=== PATIENT | female | born 1945 | race Caucasian/White ===

== ENCOUNTER 2017-02-24 10:58 | Emergency (ER) | payer MEDICARE, OTHER ==
--- NOTE | 2017-02-24 11:40 | ED ---
General Adult HPI - General Chief complaint: Fall Stated complaint: fall Time Seen by Provider: 02/24/17 11:26 Source: patient, RN notes reviewed Mode of arrival: ambulatory Limitations: no limitations - History of Present Illness Initial comments: Patient 72-year-old female who presents emergency room today with chief complaint of injury to the right knee right shoulder times one day. Does admit that yesterday she was walking back to her house when; and she went to turn around lost her balance falling down onto the right knee and hitting her right shoulder. Denies any head injury or loss conscious. Does admit that she's had increased pain to the right knee is worse with certain movements. She admits to some mild discomfort to the right shoulder and also admits that it's worse with movements. Patient denies any other complaints or associated symptoms. Patient denies any recent fever, chills, shortness of breath, chest pain, back pain, abdominal pain, nausea or vomiting, numbness or tingling, dysuria or hematuria, constipation or diarrhea, headaches or visual changes, or any other complaints. - Related Data Previous Rx's Medication Instructions Recorded Acetaminophen with Codeine 1 each PO Q4H PRN #20 tab 01/14/15 [Tylenol w/codeine #3] Cyclobenzaprine [Flexeril] 10 mg PO TID #20 tab 01/14/15 methylPREDNISolone [Medrol] 4 mg PO DIRECTED #1 tab.ds.pk 01/14/15 traMADol HCl [Ultram] 50 mg PO Q6H PRN #20 tab 02/24/17 Allergies Allergy/AdvReac Type Severity Reaction Status Date / Time hydroxychloroquine sulfate AdvReac Itching Verified 01/14/15 19:03 [From Plaquenil] Review of Systems ROS Statement: Those systems with pertinent positive or pertinent negative responses have been documented in the HPI. ROS Other: All systems not noted in ROS Statement are negative. Past Medical History Past Medical History: COPD, Osteoarthritis (OA), Rheumatoid Arthritis (RA) Additional Past Medical History / Comment(s): carpel tunnel History of Any Multi-Drug Resistant Organisms: None Reported Past Surgical History: Hysterectomy, Tonsillectomy Additional Past Surgical History / Comment(s): sjogens, bilateral carpal tunnel Past Psychological History: Anxiety Smoking Status: Current every day smoker Past Alcohol Use History: None Reported General Exam - General Exam Comments Initial Comments: General: The patient is awake and alert, in no distress, and does not appear acutely ill. Neck: The neck is supple, there is no tenderness or JVD. Cardiovascular: There is a regular rate and rhythm. No murmur, rub or gallop is appreciated. Respiratory: Lungs are clear to auscultation, respirations are non-labored, breath sounds are equal. No wheezes, stridor, rales, or rhonchi. Musculoskeletal: Patient does have some mild swelling to the right knee. Shows good range of motion of right knee, right shoulder. Mild tenderness to the anterior lateral aspect of the right knee on palpation. Patient does have some mild tenderness to both posterior and anterior aspects of the right shoulder. Sensations are intact with pulses equal bilaterally 2+ strength 5/5. Neurological: A&O x 3. CN II-XII intact, There are no obvious motor or sensory deficits. Coordination appears grossly intact. Speech is normal. Skin: Skin is warm and dry and no rashes or lesions are noted. Psychiatric: Normal mood and affect. Limitations: no limitations Course Vital Signs 02/24/17 11:07 Temperature 98.5 F Pulse Rate 97 Respiratory 18 Rate Blood Pressure 115/79 O2 Sat by Pulse 99 Oximetry Medical Decision Making - Medical Decision Making Patient reexamined at this time shows no signs of distress. X-rays reviewed are negative for any acute fracture dislocation. Results were discussed with the patient. Patient is advised follow-up with orthopedics. States she plans to follow Dr. Negrete. Patient states that she tried ibuprofen with little relief the symptoms at home. Patient requesting prescription for tramadol here in emergency room. Advised patient given a short prescription she'll need to follow-up with orthopedics or family doctor. She states understanding and is in agreement. Disposition Clinical Impression: Knee contusion, Sprain shoulder/arm Disposition: HOME SELF-CARE Condition: Good Instructions: Contusion in Adults (ED) Additional Instructions: Please use medication as discussed. Please follow-up with family doctor in the next 2 days of symptoms have not improved. Please return to emergency room if the symptoms increase or worsen or for any other concerns. Prescriptions: traMADol HCl [Ultram] 50 mg PO Q6H PRN #20 tab PRN Reason: Pain Referrals: Mercedes Squires DO [Primary Care Provider] - 1-2 days Time of Disposition: 13:06
--- NOTE | 2017-02-24 12:52 | XR ---
EXAMINATION TYPE: XR shoulder complete RT DATE OF EXAM: 02/24/2017 12:26 PM COMPARISON: NONE HISTORY: Pain TECHNIQUE: 3 views FINDINGS: I see no fracture nor dislocation. Glenohumeral joint is intact. IMPRESSION: Negative right shoulder exam.
--- NOTE | 2017-02-24 12:54 | XR ---
EXAMINATION TYPE: XR knee complete RT DATE OF EXAM: 02/24/2017 12:26 PM COMPARISON: NONE HISTORY: Pain TECHNIQUE: 3 views FINDINGS: There is narrowing of the medial joint space with spurring of the medial femoral and tibial condyles. There is mild spurring on the patella. I see no fracture nor dislocation. IMPRESSION: Moderate osteoarthritis in the medial joint space. No fracture. Mild anterior soft tissue swelling.
[2017-02-24 13:23] VITALS: BP 143/86; PULSE 86; RESP 16; TEMP 98.3
== END 2017-02-24 13:30 | disposition home or self-care (01) ==
LOC: EC 10:58
DX: S43.401A Unspecified sprain of right shoulder joint, initial encounter (principal); S80.01XA Contusion of right knee, initial encounter; F17.200 Nicotine dependence, unspecified, uncomplicated; Z88.8 Allergy status to other drugs, medicaments and biological substances; W01.10XA Fall on same level from slipping, tripping and stumbling with subsequent striking against unspecified object, initial encounter; Y93.01 Activity, walking, marching and hiking; Y92.89 Other specified places as the place of occurrence of the external cause
CPT/HCPCS: 99283

== ENCOUNTER → 2017-03-27 | Outpatient (CLI) | payer MEDICARE, OTHER ==
[2017-03-27 16:23] LABS: Blood Urea Nitrogen 22 mg/dL (7-17); Non-African American GFR(MDRD) >60 (>60 ml/min/1.73 sqM)
--- NOTE | 2017-03-28 10:04 | CT ---
EXAMINATION TYPE: CT angio neck DATE OF EXAM: 03/27/2017 HISTORY: Left sided carotid stenosis. COMPARISON: NONE CT DLP: 310.00 mGycm. Automated Exposure Control for Dose Reduction was Utilized. TECHNIQUE: CTA scan of the neck is performed with IV Contrast, patient injected with 100 mL of Omnip aque 350, axial images are obtained, coronal and sagittal reformatted images are reviewed. Three-D re constructed images are created on an independent workstation and reviewed. FINDINGS: Carotid/Vascular Structures: There is a three-vessel arch. The common carotid arteries appear normal. Some beam hardening artifact limits evaluation of the origins of the common carotid vessels. Some pl aquing may be present at the origins causing stenosis. Atheromatous plaquing is at the right internal carotid artery origin. By transverse dimension measure ment disc causing a 45% narrowing. Consider correlation with ultrasound carotid vessels. No compariso n vascular studies are present at this location. Atheromatous plaquing is present at the origin of the left internal carotid artery. This appears circ umferential is causing a 50-69% narrowing by direct measurement. This appears to be at the higher end of the range on visual inspection. Other: Internal carotid arteries bifurcate into A1 and M1 segments. Cerebral artery branches and A2 s egments as visualized appear unremarkable. Vertebrobasilar system is patent. Posterior cerebral vascu lature within the [id number] is normal. Vertebral arteries appear codominant. Lung apices within t he [id number] are clear. IMPRESSION: 1. Moderate stenosis between 50 and 69% left internal carotid artery origin with circumferential calc ified plaque at the internal carotid artery. 2. Mild narrowing right internal carotid artery origin approaching 50%.
== END | disposition home or self-care (01) ==
LOC: RADCTMAIN 15:53
PROVIDERS: ATTEND Family Medicine
DX: I65.23 Occlusion and stenosis of bilateral carotid arteries (principal)
CPT/HCPCS: 82565; 84520; 70498; 36415; Q9967

== ENCOUNTER → 2018-02-25 | Outpatient (CLI) | payer MEDICARE, OTHER ==
--- NOTE | 2018-02-25 11:01 | CTL ---
EXAMINATION TYPE: CT Low Dose Lung DATE OF EXAM ORDERED: 02/25/2018 COMPARISON: None HISTORY: . Low Dose CT Lung Screening CT DLP: [address] CTDI: 1.8 mGy IV CONTRAST USED: None. SCREENING VISIT: First visit COMPARISON: None. TECHNIQUE: Low dose computed tomography scan was performed through the chest at 1 millimeter thick se ctions and reconstructed images in the coronal plane at [address] DIAGNOSTIC QUALITY: Satisfactory FINDINGS: LUNG NODULES: Not presentLeft lung: no nodules identified.Right lung: no nodules identified. LUNGS: COPD: Severity: Mild upper lobe emphysematous changes seen. Fibrosis: Severity:None Lymph nodes: None Other findings: Linear scar postinflammatory change in the region of the lingula. RIGHT PLEURAL SPACE: Effusion: None Calcification: None Thickening: None Pneumothorax: None LEFT PLEURAL SPACE: Effusion: None Calcification: None Thickening: None Pneumothorax: None HEART: Heart Size: Mildly enlarged Coronary calcification: Mild Pericardial effusion: None OTHER FINDINGS: Upper abdomen: No significant abnormality Bony thorax: Degenerative changes Supraclavicular region: No significant abnormalityOther: No significant abnormalityI IMPRESSION: Benign FOLLOW UP CT CHEST RECOMMENDATION: Follow-up screening in one year CT LUNG RAD: Negative category 1 LUNG RAD CATEGORY 1
== END | disposition home or self-care (01) ==
LOC: RADCTMAIN 10:06
PROVIDERS: ATTEND Internal Medicine Sleep Medicine
DX: Z12.2 Encounter for screening for malignant neoplasm of respiratory organs (principal); Z87.891 Personal history of nicotine dependence

== ENCOUNTER 2019-01-26 10:00 | Day surgery (SDC) | payer MEDICARE, OTHER ==
[2019-01-21 10:00] VITALS: BMI 22.8
[~2019-01-26 10:00] MED LIST: LACTATED RINGERS 1,000 ML IV SCH; LIDOCAINE 1% 20 ML VIAL (10MG/ML) FOR IV START INTRADERMA PRN
[2019-01-26 10:23] VITALS: TEMP 98.3
[2019-01-26] MEDS ORDERED: PROPOFOL 10 MG/ML 20 ML VIAL IV ONE (11:29)
[2019-01-26] MEDS ORDERED: LIDOCAINE 1% INJ 10MG/ML (20 ML MDV) ONE (11:29)
--- NOTE | 2019-01-26 11:32 | P.GSHP ---
History of Present Illness H&P Date: 01/26/19 Chief Complaint: GERD This a 74-year-old female who presents today for EGD. Patient points of GERD and nausea. Past Medical History Past Medical History: COPD, Fibromyalgia, GERD/Reflux, Hyperlipidemia, Hypertension, Osteoarthritis (OA), Pneumonia, Rheumatoid Arthritis (RA), Thyroid Disorder Additional Past Medical History / Comment(s): Shrogren's. Hx pneumonia. History of Any Multi-Drug Resistant Organisms: None Reported Past Surgical History: Hysterectomy, Tonsillectomy Additional Past Surgical History / Comment(s): Bilateral carpal tunnel release. Past Anesthesia/Blood Transfusion Reactions: No Reported Reaction Past Psychological History: Anxiety, Depression Smoking Status: Current every day smoker Past Alcohol Use History: Rare Additional Past Alcohol Use History / Comment(s): Working on quitting, has been smoking since 16 yrs old. Currently down to 6 cigarettes per day. Past Drug Use History: Marijuana Additional Drug Use History / Comment(s): Occasional marijuana use. Aware no use 24 hrs prior to procedure. - Past Family History Mother Family Medical History: No Reported History Medications and Allergies Home Medications Medication Instructions Recorded Confirmed Type ARIPiprazole 2 mg PO HS 01/21/19 01/21/19 History Albuterol Inhaler [Ventolin Hfa 1 - 2 puff INHALATION RT-Q6H PRN 01/21/19 01/26/19 History Inhaler] Atorvastatin [Lipitor] 40 mg PO HS 01/21/19 01/21/19 History Budesonide [Pulmicort] 0.5 mg INHALATION BID PRN 01/21/19 01/26/19 History Cholecalciferol [Vitamin D3] 4,000 unit PO DAILY 01/21/19 01/21/19 History DULoxetine HCL [Cymbalta] 60 mg PO HS 01/21/19 01/21/19 History Fluticasone Nasal [place] [Flonase 1 spray EA NOSTRIL DAILY 01/21/19 01/21/19 History Nasal [place]] Folic Acid 1 mg PO DAILY 01/21/19 01/21/19 History Irbesartan/Hydrochlorothiazide 1 each PO HS 01/21/19 01/21/19 History [Irbesartan-Hctz 150-12.5 mg Tb] Levothyroxine Sodium 125 mcg PO QAM 01/21/19 01/21/19 History Methotrexate [Xatmep Oral Soln] 25 mg PO BOUDREAUX 01/21/19 01/21/19 History Mirtazapine [Remeron] 30 mg PO HS 01/21/19 01/21/19 History [place] 250 mg PO BID 01/21/19 01/21/19 History Raloxifene [Evista] 60 mg PO QAM 01/21/19 01/21/19 History traZODone HCL 150 mg PO HS 01/21/19 01/21/19 History Allergies Allergy/AdvReac Type Severity Reaction Status Date / Time hydroxychloroquine sulfate AdvReac Itching Verified 01/26/19 10:18 [From Plaquenil] Surgical - Exam Vital Signs Temp Pulse Resp BP Pulse Ox 98.3 F 99 17 155/76 98 01/26/19 10:22 01/26/19 10:22 01/26/19 10:22 01/26/19 10:22 01/26/19 10:22 - General well developed, well nourished, no distress - Eyes PERRL - ENT normal pinna - Neck no masses - Respiratory normal expansion - Cardiovascular Rhythm: regular - Abdomen Abdomen: soft, non tender Assessment and Plan Assessment: GERD, nausea. We'll perform EGD.
--- NOTE | 2019-01-26 11:40 | P.OP ---
Date of Procedure: 01/26/19 Preoperative Diagnosis: GERD Nausea Postoperative Diagnosis: Antral gastritis Hiatal hernia Esophagitis Procedure(s) Performed: EGD Anesthesia: MAC Surgeon: Sukhi Vazquez Pathology: other (Antrum, esophagus) Condition: stable Disposition: PACU Description of Procedure: Patient's placed on the endoscopy table lateral position she received IV sedation. The gastroscope placed oropharynx passed in the esophagus and into the stomach. Scope was then placed through the pylorus. The first and second p ortion of the duodenum appeared normal. Scope was then brought back the antrum and this appeared mildly inflamed. A biopsy was performed. The scope was then retroflexed and the remainder of the stomach appeared normal. There was a moderate size hiatal hernia. The GE junction was at 38 cm. The distal esophagus appeared moderately inflamed. There was evidence of a inflammatory went. A biopsies performed. The proximal esophagus appeared normal. The scope was then withdrawn for patient.
[2019-01-26 11:48] VITALS: RESP 16
[2019-01-26 12:02] VITALS: BP 116/76; PULSE 82
== END 2019-01-26 12:27 | disposition home or self-care (01) ==
LOC: ORWHC2ENDO 10:00
PROVIDERS: ATTEND Surgery
DX: K21.0 Gastro-esophageal reflux disease with esophagitis (principal); K29.50 Unspecified chronic gastritis without bleeding; K44.9 Diaphragmatic hernia without obstruction or gangrene; J44.9 Chronic obstructive pulmonary disease, unspecified; I10 Essential (primary) hypertension; E78.5 Hyperlipidemia, unspecified; M06.9 Rheumatoid arthritis, unspecified; M79.7 Fibromyalgia; M19.90 Unspecified osteoarthritis, unspecified site; E07.9 Disorder of thyroid, unspecified; F17.210 Nicotine dependence, cigarettes, uncomplicated; Z79.890 Hormone replacement therapy; Z79.51 Long term (current) use of inhaled steroids; Z79.899 Other long term (current) drug therapy
CPT/HCPCS: 88305; 43239; J2001; J2704

== ENCOUNTER → 2019-01-27 | Outpatient (CLI) | payer MEDICARE, OTHER ==
--- NOTE | 2019-01-27 11:51 | NM ---
EXAMINATION TYPE: NM hepatobiliary w CCK DATE OF EXAM: 01/27/2019 COMPARISON: NONE HISTORY: Nausea TECHNIQUE: After the intravenous administration of 4.92 mCi Tc 99m Mebrofenin hepatobiliary scintigra phy is performed. Immediate images post injection. FINDINGS: There is satisfactory initial accumulation of tracer by the liver. The gallbladder is visualized wit hin 12 minutes. The small bowel activity is noted within 16 minutes. At one hour CCK was administer ed, patient was injected with 1.14 mcg of Kinevac, and gallbladder ejection fraction is calculated at 92%. IMPRESSION: Increased gallbladder ejection fraction may reflect hypercontractile state.
== END | disposition home or self-care (01) ==
LOC: RADNMMAIN 06:50
PROVIDERS: ATTEND Surgery
DX: R11.0 Nausea (principal)
CPT/HCPCS: 78227; A9537; J2805

== ENCOUNTER 2019-02-16 08:01 | Day surgery (SDC) | payer MEDICARE, OTHER ==
[2019-02-11 13:32] VITALS: BMI 20.5
[~2019-02-16 08:01] MED LIST changes: +DEXAMETHASONE SOD PHOSPHATE 10 MG/ML 1 ML VIAL IV ONE; +HEPARIN SODIUM,PORCINE 5,000 UNIT/ML 1 ML VIAL SQ ONE; +HYDROmorphone 0.5 MG/0.5 ML SYRINGE IVP PRN; +MIDAZOLAM 2 MG/2 ML VIAL IV PRN; +ONDANSETRON 4 MG/2 ML VIAL IVP ONE; +SCOPOLAMINE 1.5MG/72HR PATCH TRANSDERM ONE; +ceFAZolin IN SWFI 2 GM/20 ML SYRINGE IVP ONE
--- NOTE | 2019-02-16 08:45 | P.GSHP ---
History of Present Illness H&P Date: 02/16/19 Chief Complaint: Right upper quadrant pain This a 74-year-old female who presents today for laparoscopic cholecystectomy. Patient had complaints of right upper quadrant pain. Patient had a HIDA scan performed which showed a hyperkinetic gallbladder with an elevated ejection fraction Past Medical History Past Medical History: COPD, Fibromyalgia, GERD/Reflux, Hyperlipidemia, Hypertension, Osteoarthritis (OA), Pneumonia, Rheumatoid Arthritis (RA), Thyroid Disorder Additional Past Medical History / Comment(s): frequent nausea,hx Shrogren's History of Any Multi-Drug Resistant Organisms: None Reported Past Surgical History: Hysterectomy, Tonsillectomy Additional Past Surgical History / Comment(s): Bilateral carpal tunnel release. Past Anesthesia/Blood Transfusion Reactions: No Reported Reaction Smoking Status: Current every day smoker - Past Family History Mother Family Medical History: No Reported History Medications and Allergies Home Medications Medication Instructions Recorded Confirmed Type ARIPiprazole 2 mg PO HS 01/21/19 02/16/19 History Albuterol Inhaler [Ventolin Hfa 1 - 2 puff INHALATION RT-Q6H PRN 01/21/19 02/16/19 History Inhaler] Atorvastatin [Lipitor] 40 mg PO HS 01/21/19 02/16/19 History Budesonide [Pulmicort] 0.5 mg INHALATION BID PRN 01/21/19 02/16/19 History Cholecalciferol [Vitamin D3] 4,000 unit PO DAILY 01/21/19 02/16/19 History DULoxetine HCL [Cymbalta] 60 mg PO HS 01/21/19 02/16/19 History Fluticasone Nasal [place] [Flonase 1 spray EA NOSTRIL DAILY 01/21/19 02/16/19 History Nasal [place]] Folic Acid 1 mg PO DAILY 01/21/19 02/16/19 History Irbesartan/Hydrochlorothiazide 1 each PO HS 01/21/19 02/16/19 History [Irbesartan-Hctz 150-12.5 mg Tb] Levothyroxine Sodium 125 mcg PO QAM 01/21/19 02/16/19 History Mirtazapine [Remeron] 30 mg PO HS 01/21/19 02/16/19 History [place] 250 mg PO BID PRN 01/21/19 02/16/19 History Raloxifene [Evista] 60 mg PO QAM 01/21/19 02/16/19 History traZODone HCL 150 mg PO HS 01/21/19 02/16/19 History Methotrexate Sodium [Methotrexate] 25 mg PO BOUDREAUX 02/11/19 02/16/19 History Allergies Allergy/AdvReac Type Severity Reaction Status Date / Time hydroxychloroquine sulfate AdvReac Anaphylaxis Verified 02/16/19 08:14 [From Plaquenil] Surgical - Exam Vital Signs Temp Pulse Resp BP Pulse Ox 97 F L 110 H 16 130/88 98 02/16/19 08:21 02/16/19 08:21 02/16/19 08:21 02/16/19 08:21 02/16/19 08:21 - General well developed, well nourished, no distress - Eyes PERRL - ENT normal pinna - Neck no masses - Respiratory normal expansion - Cardiovascular Rhythm: regular - Abdomen Abdomen: soft, non tender Assessment and Plan Assessment: Right upper quadrant pain Type clinic gallbladder Chronic cholecystitis We'll perform laparoscopic cholecystectomy.
[2019-02-16] MEDS ORDERED: LIDOCAINE 1% INJ 10MG/ML (20 ML MDV) ONE (09:00)
[2019-02-16] MEDS ORDERED: fentaNYL (PF) 50 MCG/ML 2 ML AMP ONE (09:00)
[2019-02-16] MEDS ORDERED: ROCURONIUM BROMIDE 10 MG/ML 10 ML VIAL IV ONE (09:00)
[2019-02-16] MEDS ORDERED: GLYCOPYRROLATE 0.2 MG/ML 2 ML VIAL ONE (09:00)
[2019-02-16] MEDS ORDERED: MIDAZOLAM 2 MG/2 ML VIAL ONE (09:00)
[2019-02-16] MEDS ORDERED: SUCCINYLCHOLINE CHLORIDE 100 MG/5 ML SYR IV ONE (09:00)
[2019-02-16] MEDS ORDERED: PHENYLEPHRINE-0.9% NACL SYG 1 MG/10 ML SYRINGE ONE (09:00)
[2019-02-16] MEDS ORDERED: NEOSTIGMINE 1 MG/ML 10 ML VIAL ONE (09:00)
[2019-02-16] MEDS ORDERED: PROPOFOL 10 MG/ML 20 ML VIAL IV ONE (09:00)
[2019-02-16] MEDS ORDERED: BUPIVACAIN-EPI 0.5%-1:200,000 30 ML VIAL SQ ONE ×2 (09:16→09:26)
--- NOTE | 2019-02-16 09:44 | P.OP ---
Date of Procedure: 02/16/19 Preoperative Diagnosis: Cholecystitis Postoperative Diagnosis: Cholecystitis Procedure(s) Performed: Laparoscopic cholecystectomy Anesthesia: KATINA Surgeon: Sukhi Vazquez Estimated Blood Loss (ml): 5 Pathology: other (Gallbladder) Condition: stable Disposition: PACU Description of Procedure: The patient was placed on the operating table. The patient received a general endotracheal tube anesthesia. The patients abdomen was prepped and draped in the usual sterile fashion. Through an infraumbilical stab incision, the fascia of the anterior abdominal wall was grasped with a pair of Kochers and then the Veress needle was placed in the peritoneal cavity. Position of the Veress needle was confirmed with positive drop test. The abdomen was then insufflated. After adequate insufflation, the 10 mm trocar was placed in the peritoneal cavity. Following this the laparoscope was placed in the peritoneal cavity. The patient was placed in the head-up, right side up position and then a 5 mm trocar was placed in the right lateral and right subcostal position under direct visualization. A 8 mm trocar was placed in the epigastric position. The gallbladder was grasped in the fundus and infundibulum. Traction on the gallbladder was placed in the lateral and the cephalad positions. The triangle of Calot was visualized.. The cystic duct was bluntly dissected until the union of the cystic duct and common bile duct was seen. A critical view of safety was achieved. The cystic duct was then divided and sealed with the Harmonic scissors. A PDS Endoloop was then placed throughout the cystic duct stump. The cystic artery divided and sealed with the Harmonic scissors. The gallbladder was then removed from the liver bed using Harmonic scissors. The gallbladder was then extracted through the epigastric port site. Operative field was checked for any bleeding spots and Harmonic scissors was used to coagulate the liver bed. The abdomen was irrigated. The trocars were removed. The skin was closed using interrupted 3-0 Vicryl suture. Dermabond dressing were applied. The patient tolerated the procedure well.
[2019-02-16 09:58] VITALS: TEMP 97.5
[2019-02-16 10:37] VITALS: RESP 18
[2019-02-16 10:59] VITALS: PULSE 93
[2019-02-16] MEDS ORDERED: HYDROcodone/APAP 7.5-325MG 1 EACH TAB PO ONE (11:12)
[2019-02-16 11:25] VITALS: BP 150/76
== END 2019-02-16 11:54 | disposition home or self-care (01) ==
LOC: OR 08:01
PROVIDERS: ATTEND Surgery
DX: K81.1 Chronic cholecystitis (principal); E78.5 Hyperlipidemia, unspecified; K21.9 Gastro-esophageal reflux disease without esophagitis; J44.9 Chronic obstructive pulmonary disease, unspecified; M06.9 Rheumatoid arthritis, unspecified; M79.7 Fibromyalgia; E07.9 Disorder of thyroid, unspecified; I10 Essential (primary) hypertension; F17.210 Nicotine dependence, cigarettes, uncomplicated; Z79.899 Other long term (current) drug therapy; Z79.890 Hormone replacement therapy; Z88.8 Allergy status to other drugs, medicaments and biological substances; Z90.49 Acquired absence of other specified parts of digestive tract; Z90.710 Acquired absence of both cervix and uterus; Z98.890 Other specified postprocedural states
CPT/HCPCS: 47562; 88304; J2250; J1644; J1100; J2710; J2405; J2001; J3010; J2370; J0330; J2704; J0690

== ENCOUNTER → 2020-04-07 | Outpatient (CLI) | payer MEDICARE, OTHER ==
[2020-04-07 18:05] LABS: African American GFR (CKD) >90 (>60 ml/min/1.73 sqM); Blood Urea Nitrogen 15 mg/dL (7-17); Non-African American GFR(CKD) >90 (>60 ml/min/1.73 sqM)
--- NOTE | 2020-04-08 08:04 | CT ---
EXAMINATION TYPE: CT angio neck DATE OF EXAM: 04/07/2020 COMPARISON: 03/27/2017 HISTORY: Stroke-like symptoms for about [address] DLP: 185.9 mGycm CONTRAST: CTA cervical carotids is performed and with IV Contrast, patient injected with 65 mL of Isovue 370. Contrast CTA of the cervical carotids was performed 3-D reconstruction imaging obtained at a separate workstation. Right carotid system: Mild plaque is seen of the right common carotid artery. There is moderate calc ified plaque also noted at the carotid bulb. Estimated diameter reduction is 50%. ECA is patent. Right vertebral artery appears unremarkable. Left carotid system: Mild plaque is seen of the left common carotid artery. There is severe calcifie d plaque also noted at the carotid bulb. Estimated diameter reduction is 80%. ECA is patent. Left vertebral artery appears unremarkable. Upper lobe emphysematous changes noted. IMPRESSION: 1. Estimated diameter reduction Right ICA 50% 2. Estimated diameter reduction Left ICA 80%
== END | disposition home or self-care (01) ==
LOC: RADCTMAIN 17:11
PROVIDERS: ATTEND Family Medicine
DX: G45.9 Transient cerebral ischemic attack, unspecified (principal)
CPT/HCPCS: 82565; 84520; 70498; 36415; Q9967

== ENCOUNTER → 2020-05-01 | Outpatient (CLI) | payer MEDICARE, OTHER ==
--- NOTE | 2020-05-01 14:53 | XR ---
EXAMINATION TYPE: XR chest 2V DATE OF EXAM: 05/01/2020 COMPARISON: CT February 25, 2018 HISTORY: COPD TECHNIQUE: Frontal and lateral views of the chest are obtained. FINDINGS: There is background chronic emphysematous change without suspicious new focal air space op acity, pleural effusion, or pneumothorax seen. The cardiac silhouette size remains within normal mendoza its with atherosclerotic change in the aortic knob redemonstrated. The osseous structures remain de mineralized. Underlying S-shaped scoliosis is present IMPRESSION: Chronic emphysematous change without acute pulmonary process.
== END | disposition home or self-care (01) ==
LOC: RADXRMAIN 14:29
PROVIDERS: ATTEND Family Medicine
DX: J43.9 Emphysema, unspecified (principal)
CPT/HCPCS: 71046

== ENCOUNTER → 2020-06-29 | Outpatient (CLI) | payer MEDICARE, OTHER ==
--- NOTE | 2020-06-29 19:08 | CT ---
EXAMINATION TYPE: CT chest wo con DATE OF EXAM: 06/29/2020 COMPARISON: 02/25/2018 HISTORY: follow up pulmonary nodule CT DLP: 101 mGycm, Automated exposure control for dose reduction was used. CONTRAST: Performed injected with 0 mL of Isovue 300. TECHNIQUE: Axial images were obtained at 5 mm thick sections. Reconstructed images are reviewed on [employer] computer in the coronal plane. FINDINGS: Portion of the thyroid visualized is normal. Emphysematous changes are present to the lung noriega. There is a small area of pneumonitis within the posterior right midlung. Series 4 image 27. There are some streak opacities tracking along the major fissures bilaterally near the lung bases. No enlarged mediastinal or hilar adenopathy is evident. The ascending aorta diameter at the level o f the main pulmonary artery is 3.8 cm. The main pulmonary artery diameter at the bifurcation is 2.7 cm. Coronary artery calcification is present. Limited CT sections are obtained through the upper abdomen. Abdomen is essentially unremarkable. IMPRESSIONS: 1. Small area of pneumonitis within the posterior right lung. Monitoring is recommended. Early neopla sm as well as infectious etiologies are within the differential.
== END | disposition home or self-care (01) ==
LOC: RADCTMAIN 13:38
PROVIDERS: ATTEND Internal Medicine Sleep Medicine
DX: J18.9 Pneumonia, unspecified organism (principal)
CPT/HCPCS: 71250

== ENCOUNTER → 2020-07-06 | Outpatient (CLI) | payer MEDICARE, OTHER ==
--- NOTE | 2020-07-10 08:59 | MM ---
Reason for exam: screening (asymptomatic). Last mammogram was performed 2 years and 3 months ago. History: Patient is postmenopausal. Benign excisional biopsy of the left breast, February 28, 2020. Took estrogen for 6 months beginning at age 57. Physical Findings: A clinical breast exam by your physician is recommended on an annual basis and results should be correlated with mammographic findings. MG 3D Screening Mammo W/Cad Bilateral CC and MLO view(s) were taken. Prior study comparison: April 14, 2018, mammogram. The breast tissue is extremely dense which could obscure a lesion on mammography. Benign appearing bilateral calcifications. No significant changes when compared with prior studies. ASSESSMENT: Benign, BI-RAD 2 RECOMMENDATION: Routine screening mammogram of both breasts in 1 year.
== END | disposition home or self-care (01) ==
LOC: RADMAMWWP 13:15
PROVIDERS: ATTEND Family Medicine
DX: Z12.31 Encounter for screening mammogram for malignant neoplasm of breast (principal)
CPT/HCPCS: 77063; 77067

== ENCOUNTER → 2021-08-28 | Outpatient (CLI) | payer MEDICARE, OTHER ==
--- NOTE | 2021-08-28 13:31 | CT ---
EXAMINATION TYPE: CT CAP w con DATE OF EXAM: 08/28/2021 HISTORY: Weight loss, abdominal pain CT DLP: 769mGycm Automated Exposure Control for Dose Reduction was Utilized. CONTRAST: CT scan of the thorax, abdomen and pelvis is performed with IV Contrast, patient injected with 100 mL of Isovue 300. Comparison: Chest CT June 29, 2020 FINDINGS: LUNGS: Moderate underlying emphysematous change greatest in the upper lungs redemonstrated. Mild to m oderate bibasilar linear scarring and/or atelectasis . No suspicious new greater than 5 mm pulmonary nodules or masses. There is no pleural effusion or pneumothorax seen. The tracheobronchial tree is p atent. MEDIASTINUM: There are no greater than 1 cm hilar or mediastinal lymph nodes. No cardiomegaly. Smal l to tiny pericardial effusion is seen anterior inferior aspect stable from prior. Ascending aorta m easures up to 3.5 cm in diameter. . Severe three-vessel coronary artery calcification redemonstrated. LIVER/GB: Gallbladder not seen and presumed surgically absent. PANCREAS: No significant abnormality is seen. SPLEEN: No significant abnormality is seen. ADRENALS: No significant abnormality is seen. KIDNEYS: Simple appearing 2.2 cm thin-walled cyst in the left kidney laterally to lower pole level co bertha image 52. BOWEL: Neural contrast reaches level of the transverse colon. Suboptimal evaluation of distal bowel a s patient has little intra-abdominal fat. Normal-appearing appendix axial images 96 noted in the righ t pelvis. No suspicious small or large bowel dilatation. Sigmoid colonic diverticulosis. No CT eviden ce for acute diverticulitis. Low-lying cecum into the right pelvis. GENITAL ORGANS: Uterus surgically absent or markedly atrophic. LYMPH NODES: No greater than 1cm abdominal or pelvic lymph nodes are appreciated. OSSEOUS STRUCTURES: Underlying scoliosis. Severe disc space narrowing with endplate sclerosis right L 4-L5 level. Exaggerated spinal curvature on sagittal images.. OTHER: Moderate to severe atherosclerotic change of the abdominal aorta. Distal AAA up to 3.2 cm axia l image 73. No aneurysm extension into the iliac arteries. IMPRESSION: No suspicious new mass or adenopathy seen to suggest neoplasm.
== END | disposition home or self-care (01) ==
LOC: RADCTMAIN 10:57
PROVIDERS: ATTEND Family Medicine
DX: R10.9 Unspecified abdominal pain (principal)
CPT/HCPCS: 82565; 84520; 74177; 36415; Q9967

== ENCOUNTER → 2022-01-23 | Outpatient (CLI) | payer MEDICARE, OTHER ==
--- NOTE | 2022-01-23 19:46 | BD ---
EXAMINATION TYPE: Axial Bone Density DATE OF EXAM: 01/23/2022 COMPARISON: NONE CLINICAL HISTORY: 77 year old Female. ICD-10 CODE: Z78.0 ASYMPTOMATIC MENOPAUSAL STATE Height: 62 Weight: 96.9 FRAX RISK QUESTIONS: Alcohol (3 or more units per day): no Family History (Parent hip fracture): no Glucocorticoids (More than 3mos): no (Ex: prednisone, prednisolone, methylprednisolone, dexamethasone, and hydrocortisone). History of Fracture in Adulthood: yes Secondary Osteoporosis: 1. Type 1 Diabetes: no 2. Hyperthyroidism: no 3. Menopause before 45: no 4. Malnutrition: no 5. Chronic liver disease: no Rheumatoid Arthritis: yes Current Tobacco Use: yes RISK FACTORS HISTORY OF: Surgery to Spine/Hip(right/left)/Wrist (right/left): no Family History of Osteoporosis: yes Active: yes Diet low in dairy products/other sources of calcium: no Postmenopausal woman: yes Lost more than 2 inches in height since high school: no MEDICATIONS: Additional History: EXAM MEASUREMENTS: Bone mineral densitometry was performed using the XTRM System. Bone mineral density as measured about the Lumbar spine is: ----- L1-L4(G/cm2): 1.230 T Score Values are as follows: ----- L1: -1.9 ----- L2: -1.5 ----- L3: -0.9 ----- L4: 4.4 ----- L1-L4: 0.4 Bone mineral density has: increased 11.2 % since study of: 07.16.2006 Bone mineral density about the R hip (g/cm2): 0.657 Bone mineral density about the L hip (g/cm2): 0.668 T Score values are as follows: -----R Neck: -2.7 -----L Neck: -2.7 -----R Total: -2.7 -----L Total: -2.8 Bone mineral density has: decreased -23.4 % since study of: 2018 FRAX%s: The graph provided illustrates a 23.9% chance for a major osteoporotic fx and a 12.3% chance for the hips probability for fx in 10 years time. IMPRESSION: Osteoporosis (T Score less than -2.5). There is increased fracture risk and therapy is usually indicated based on age. Re-Screen 1-2 years. NOTE: T-SCORE=SD OF THE YOUNG ADULT MEAN.
--- NOTE | 2022-01-24 12:40 | MM ---
Reason for exam: screening (asymptomatic). Last mammogram was performed 1 year and 7 months ago. History: Patient is postmenopausal. Benign excisional biopsy of the left breast, February 28, 2020. Took estrogen for 6 months beginning at age 57. Physical Findings: A clinical breast exam by your physician is recommended on an annual basis and results should be correlated with mammographic findings. MG 3D Screening Mammo W/Cad Bilateral CC and MLO view(s) were taken. Prior study comparison: July 06, 2020, bilateral MG 3d screening mammo w/cad. April 14, 2018, mammogram. The breast tissue is extremely dense which could obscure a lesion on mammography. There are benign appearing round, linear, vascular calcifications bilaterally. There is no discrete abnormality. ASSESSMENT: Benign, BI-RAD 2 RECOMMENDATION: Routine screening mammogram of both breasts in 1 year. Some advise bilateral ultrasound surveillance in patient with dense tissue.
== END | disposition home or self-care (01) ==
LOC: RADMAMWWP 15:56
PROVIDERS: ATTEND Family Medicine
DX: Z12.31 Encounter for screening mammogram for malignant neoplasm of breast (principal); M81.0 Age-related osteoporosis without current pathological fracture; Z78.0 Asymptomatic menopausal state
CPT/HCPCS: 77063; 77067; 77080

== ENCOUNTER → 2022-02-05 | Outpatient (CLI) | payer MEDICARE, OTHER ==
--- NOTE | 2022-02-05 20:52 | CT ---
EXAMINATION TYPE: CT angio neck DATE OF EXAM: 02/05/2022 HISTORY: CAROTID STENOSIS COMPARISON: CT dated 04/07/2022 CT DLP: 179.2 mGycm. Automated Exposure Control for Dose Reduction was Utilized. TECHNIQUE: CTA scan of the neck is performed with IV Contrast, patient injected with 65ml mL of Isov ue 370, axial images are obtained, coronal and sagittal reformatted images are reviewed. 3D reconstru cted images are created on an independent workstation and reviewed. FINDINGS: Carotid/Vascular Structures: Scattered arterial atherosclerotic calcification and tortuosity. 50% jamal nosis of the origin of the left subclavian artery by a partially calcified atheromatous plaque yet pa tent distally. Mild stenosis of the origin of the left vertebral artery yet patent distally. About 50 % stenosis of the origin and the most proximal portion of the right internal carotid artery by a part ially calcified atheromatous plaque yet patent distally. Severe (about 85-90 %) stenosis of the origi n of the left internal carotid artery by a densely calcified atheromatous plaque yet patent distally. Unremarkable remainder of the visualized neck arteries. Other: Mucosal thickening and chronic inflammatory changes of the left sphenoid sinus compartment. Ce ntrilobular emphysematous changes are seen in the lung apex. Degenerative changes at C5-6 and C6-7 le vels. IMPRESSION: 50% stenosis of the origin and the most proximal portion of the right internal carotid artery with se ondina stenosis of the origin the left internal carotid artery as detailed above, for vascular surgery consultation. Other findings as described above.
== END | disposition home or self-care (01) ==
LOC: RADCTMAIN 15:15
PROVIDERS: ATTEND Internal Medicine Clinical Cardiac Electrophysiology
DX: I65.23 Occlusion and stenosis of bilateral carotid arteries (principal); J43.2 Centrilobular emphysema; M47.812 Spondylosis without myelopathy or radiculopathy, cervical region
CPT/HCPCS: 82565; 84520; 70498; 36415; Q9967

== ENCOUNTER → 2022-03-19 | Outpatient (CLI) | payer MEDICARE, OTHER ==
[2022-03-19 17:31] LABS: HCT 44.4 % (37.2-46.3); HGB 14.2 g/dL (12.0-15.0); MCH 31.3 pg (27.0-32.0); Mean Platelet Volume 10.1 fL (9.5-12.2); NRBC Per 100 WBC 0 /100 WBCS (0.0-0.0); Platelet Count 273 X 10*3/uL (140-440); RBC 4.53 X 10*6/uL (4.10-5.20); RDW 13.6 % (11.5-14.5); WBC 6.54 X 10*3/uL (4.50-10.00)
[2022-03-19 17:41] LABS: African American GFR (CKD) 83.6 (60.0-200.0); Anion Gap 8.5 mmol/L (10.00-18.00); Blood Urea Nitrogen 17.3 mg/dL (9.0-27.0); Carbon Dioxide 26.5 mmol/L (20.0-27.5); Non-African American GFR(CKD) 72.1 (60.0-200.0); Potassium 4.2 mmol/L (3.5-5.5)
== END | disposition home or self-care (01) ==
LOC: LABPAT 11:16
PROVIDERS: ATTEND Internal Medicine Interventional Cardiology
DX: Z01.812 Encounter for preprocedural laboratory examination (principal); I65.23 Occlusion and stenosis of bilateral carotid arteries
CPT/HCPCS: 80051; 82565; 84520; 85027

== ENCOUNTER 2022-03-27 07:14 | Inpatient (IN) | payer MEDICARE, OTHER ==
[~2022-03-27 07:14] MED LIST changes: +ASPIRIN 325 MG TAB PO PRN; -DEXAMETHASONE SOD PHOSPHATE 10 MG/ML 1 ML VIAL IV ONE; -HEPARIN SODIUM,PORCINE 5,000 UNIT/ML 1 ML VIAL SQ ONE; -HYDROmorphone 0.5 MG/0.5 ML SYRINGE IVP PRN; -LACTATED RINGERS 1,000 ML IV SCH; -LIDOCAINE 1% 20 ML VIAL (10MG/ML) FOR IV START INTRADERMA PRN; -MIDAZOLAM 2 MG/2 ML VIAL IV PRN; +NITROGLYCERIN SL TABS 0.4 MG TAB SUBLINGUAL PRN; -ONDANSETRON 4 MG/2 ML VIAL IVP ONE; -SCOPOLAMINE 1.5MG/72HR PATCH TRANSDERM ONE; +SODIUM CHLORIDE 0.9% 1,000 ML in EMPTY BAG 1 BAG IV ONE; +ceFAZolin 2 GM in SODIUM CHLORIDE 0.9% 500 ML 500 ML IRRIGATION PRN; -ceFAZolin IN SWFI 2 GM/20 ML SYRINGE IVP ONE
[2022-03-27] MEDS ORDERED: SODIUM CHLORIDE 0.9% 1,000 ML IV ONE ×3 (07:30→16:00)
[2022-03-27] MEDS ORDERED: CLOPIDOGREL 75 MG TAB ONE ×2 (08:00→11:12)
[2022-03-27] MEDS ORDERED: LIDOCAINE 1% INJ 10MG/ML (30 ML VIAL-PF) SQ ONE (10:39)
[2022-03-27] MEDS ORDERED: HEPARIN SODIUM 1,000 UN/ML (10ML VL) ONE (10:45)
[2022-03-27] MEDS ORDERED: HEPARIN SODIUM 1,000 UN/ML (10ML VL) IV ONE (10:49)
[2022-03-27] MEDS ORDERED: PHENYLEPHRINE-0.9% NACL SYG 1,000 MCG/10 ML SYRINGE IV ONE (11:13)
[2022-03-27] MEDS ORDERED: NOREPINEPHRINE 4 MG in SODIUM CHLORIDE 0.9% 250 ML IV ONE (11:15)
[2022-03-27] MEDS ORDERED: CLOPIDOGREL 75 MG TAB PO ONE (11:22)
[2022-03-27] MEDS ORDERED: IOPAMIDOL-250 100ML BTL INTRAARTER ONE (11:38)
[2022-03-27] MEDS ORDERED: IOPAMIDOL-370 125ML BTL INJ ONE (11:38)
--- NOTE | 2022-03-27 11:48 | P.PCN ---
Date of Procedure: 03/27/22 Operative Findings: CAROTID ARTERY INTERVENTION Performing physician Blayne Hager M.D. 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 She has history of hypertension and dyslipidemia also Approach Left common femoral artery Complication None Level of sedation No sedation was given during the procedure. The procedure length was 38 minute Procedure description After obtaining an informed consent the patient was brought to the cardiac slab puller. The right common femoral artery was cannulated using micropuncture technique under ultrasound guidance, the micropuncture wire passed easily then a place a 6-Nepalese shuttle sheath after I predilated the artery using 6-Nepalese dilator. The sheath was advanced all the way up to the descending aorta. That point anticoagulation was initiated and the patient was given 6000 use of heparin at the beginning of the procedure with continuous ACT monitoring throughout the procedure Subsequently I did aortic arch angiogram using 5-Nepalese pigtail catheter. The aortic arch angiogram revealed type II aortic arch I was able to engage the left common carotid artery using a JB2 catheter with a stiff Glidewire and subsequently I advanced the sheath over the wire and the catheter to the proximal left common carotid artery Left common and left internal carotid artery angiogram was performed and revealed critical lesion involving the left common carotid artery right after the takeoff from the left common carotid artery. At that point and after prepping the filter wire and that was 7.2 mm Emboshield JOLENE filter wire I did advance the wire through the lesion in the left common carotid artery and subsequently I deployed the filter under fluoroscopy guidance. Predilatation of the lesion was performed using 4 mm balloon. Subsequently I deployed a 8-6 mm x 30 mm Xact stent under fluoroscopy guidance after the stent was positioned under fluoroscopy guidance. Postdilatation was performed using 5 mm balloon. The following angiogram showed an excellent angiographic results and the procedure was completed without any complication Postprocedure management #1 dual antiplatelet therapy #2 restart the patient back on anticoagulation #3 pulled the sheath from the right groin and manual bleeding control #4 and ICU monitoring #5 follow-up with the patient
[2022-03-27] MEDS ORDERED: SODIUM CHLORIDE 0.9% 1,000 ML IV SCH (11:50)
[2022-03-27] MEDS ORDERED: MIDAZOLAM 2 MG/2 ML VIAL IV ONE (13:39)
[2022-03-27] MEDS ORDERED: MAG HYDROX/AL HYDROX/SIMETH 30 ML CUP PO PRN (15:43)
[2022-03-27] MEDS ORDERED: ATROPINE SULFATE 0.1 MG/ML 10ML SYRINGE IV PRN (15:43)
--- NOTE | 2022-03-27 16:05 | IR ---
EXAMINATION TYPE: IR stent intravas non coronary DATE OF EXAM: 03/27/2022 COMPARISON: NONE HISTORY: Fluoroscopy time. Fluoroscopy was provided to the referring clinician.
[2022-03-27] MEDS ORDERED: NOREPINEPHRINE 4 MG in SODIUM CHLORIDE 0.9% 250 ML IV SCH (16:15)
[2022-03-27] MEDS: NICOTINE 14MG/24HR PATCH TRANSDERM SCH (16:33)
[2022-03-27 16:54] LABS: Glucose,Whole Blood 130 mg/dL (70-110)
[2022-03-27] MEDS ORDERED: ATORVASTATIN 40 MG TAB PO SCH (21:00)
[2022-03-27] MEDS ORDERED: ALPRAZolam 1 MG TAB PO SCH (21:00)
[2022-03-27] MEDS ORDERED: QUEtiapine 200 MG TAB PO SCH (21:00)
[2022-03-28 06:31] LABS: HCT 33.7 % (34.0-46.0); Hypochromasia Slight; MCH 33.4 pg (25.0-35.0); MCHC 32.7 g/dL (31.0-37.0); MCV 102.2 fL (80.0-100.0); Macrocytosis Slight; Platelet Count 200 k/uL (150-450); RDW 13.4 % (11.5-15.5); WBC 6.5 k/uL (3.8-10.6)
[2022-03-28 06:33] LABS: African American GFR (CKD) >90 (>60 ml/min/1.73 sqM); Anion Gap 3 mmol/L; Blood Urea Nitrogen 24 mg/dL (7-17); Calcium 8.1 mg/dL (8.4-10.2); Carbon Dioxide 23 mmol/L (22-30); Chloride 113 mmol/L (98-107); Glucose 93 mg/dL (74-99); Non-African American GFR(CKD) 84 (>60 ml/min/1.73 sqM); Potassium 4.2 mmol/L (3.5-5.1); Sodium 139 mmol/L (137-145)
[2022-03-28 06:54] LABS: Eosinophils # (M) 0.07 k/uL (0-0.7); Lymphocytes # (M) 2.86 k/uL (1.0-4.8); Monocytes # (M) 0.46 k/uL (0-1.0); Neutrophils # (M) 3.12 k/uL (1.3-7.7); Neutrophils % (M) 48 %; Nucleated Red Blood Cells 0 /100 WBC (0-0); Total Cells Counted 100
[2022-03-28] MEDS ORDERED: PANTOPRAZOLE 40 MG TABLET PO SCH (07:30)
--- NOTE | 2022-03-28 08:01 | P.DS ---
Providers Date of admission: 03/27/22 07:14 Attending physician: Blayne Hager Consults: 03/27/22 15:43 Consult Physician Routine Consulting Provider: Blayne Hager Consult Reason/Comments: Post Interventional Patient Do you want consulting provider notified?: Already Contacted Primary care physician: Marti Mack [facility] Course: This is a 77-year-old female patient who underwent yesterday successful stenting of the left internal carotid artery from right groin approach. The patient was seen this morning. She is asymptomatic. She is hemodynamically stable rate she has a borderline low heart rate but that has been chronic. She is not on any AV aleta dawn agents. She is on small dose of norepinephrine at 1 riki per minute. I'm going to DC that and hold her blood pressure medications including amlodipine as well as losartan for the patient to be discharged home today and follow-up with Dr. Campuzano in a week. The right groin is soft and nontender and without any bruises. Plan - Discharge Summary Discharge Rx Participant: No New Discharge Prescriptions: New Aspirin 325 mg PO DAILY #90 tab Continue Umeclidinium Brm/Vilanterol Tr [Anoro Ellipta 62.5-25 Mcg INH] 1 puff INHALATION DAILY QUEtiapine [SEROquel] 200 mg PO HS ALPRAZolam [Xanax] 0.5 mg PO QAM ALPRAZolam [Xanax] 1 mg PO HS Clopidogrel [Plavix] 75 mg PO DAILY Multivitamins, Thera [Multivitamin (formulary)] 1 tab PO DAILY Atorvastatin [Lipitor] 80 mg PO HS Omeprazole [PriLOSEC] 40 mg PO DAILY Zinc 50 mg PO DAILY Discontinued amLODIPine [Norvasc] 5 mg PO DAILY Losartan [Cozaar] 50 mg PO HS Discharge Medication List ALPRAZolam [Xanax] 0.5 mg PO QAM 03/26/22 [History] ALPRAZolam [Xanax] 1 mg PO HS 03/26/22 [History] Atorvastatin [Lipitor] 80 mg PO HS 03/26/22 [History] Clopidogrel [Plavix] 75 mg PO DAILY 03/26/22 [History] Multivitamins, Thera [Multivitamin (formulary)] 1 tab PO DAILY 03/26/22 [History] Omeprazole [PriLOSEC] 40 mg PO DAILY 03/26/22 [History] QUEtiapine [SEROquel] 200 mg PO HS 03/26/22 [History] Umeclidinium Brm/Vilanterol Tr [Anoro Ellipta 62.5-25 Mcg INH] 1 puff INHALATION DAILY 03/26/22 [History] Zinc 50 mg PO DAILY 03/26/22 [History] Aspirin 325 mg PO DAILY #90 tab 03/28/22 [Rx] Follow up Appointment(s)/Referral(s): Emeka Campuzano MD [STAFF PHYSICIAN] - 1 Week
[2022-03-28] MEDS ORDERED: ALPRAZolam 0.5 MG TAB PO SCH (09:00)
[2022-03-28] MEDS ORDERED: CLOPIDOGREL 75 MG TAB PO SCH (09:00)
[2022-03-28] MEDS ORDERED: MULTIVITAMINS, THERA 1 EACH TAB PO SCH (09:00)
[2022-03-28] MEDS ORDERED: ASPIRIN 81 MG PO SCH (09:00)
[2022-03-28 09:09] VITALS: TEMP 98.1
[2022-03-28] MEDS: NICOTINE 14MG/24HR PATCH TRANSDERM SCH (09:25)
[2022-03-28 14:06] VITALS: BP 126/63; PULSE 52; RESP 21
== END 2022-03-28 15:34 | disposition home or self-care (01) | DRG 36 ==
LOC: 2ORMAIN 07:14 → 2SICU 16:17
PROVIDERS: ADMIT Internal Medicine Interventional Cardiology; ATTEND Internal Medicine Interventional Cardiology
PROC: 3E033XZ Introduction of Vasopressor into Peripheral Vein, Percutaneous Approach (ICD-10-PCS; principal; 2022-03-27 09:00)
PROC: B31R1ZZ Fluoroscopy of Intracranial Arteries using Low Osmolar Contrast (ICD-10-PCS; principal; 2022-03-27 09:00)
PROC: B3131ZZ Fluoroscopy of Right Common Carotid Artery using Low Osmolar Contrast (ICD-10-PCS; principal; 2022-03-27 09:00)
PROC: X2AJ336 Cerebral Embolic Filtration, Extracorporeal Flow Reversal Circuit from Left Common Carotid Artery, Percutaneous Approach, New Technology Group 6 (ICD-10-PCS; principal; 2022-03-27 09:00)
PROC: 037L3DZ Dilation of Left Internal Carotid Artery with Intraluminal Device, Percutaneous Approach (ICD-10-PCS; principal; 2022-03-27 09:00)
PROC: B3171ZZ Fluoroscopy of Left Internal Carotid Artery using Low Osmolar Contrast (ICD-10-PCS; principal; 2022-03-27 09:00)
PROC: B4101ZZ Fluoroscopy of Abdominal Aorta using Low Osmolar Contrast (ICD-10-PCS; principal; 2022-03-27 09:00)
DX: I65.23 Occlusion and stenosis of bilateral carotid arteries (principal); E78.5 Hyperlipidemia, unspecified; Z20.822 Contact with and (suspected) exposure to COVID-19; Z28.310 Unvaccinated for COVID-19; I10 Essential (primary) hypertension; R00.1 Bradycardia, unspecified; I08.0 Rheumatic disorders of both mitral and aortic valves; F17.210 Nicotine dependence, cigarettes, uncomplicated; Z71.6 Tobacco abuse counseling; Z86.73 Personal history of transient ischemic attack (TIA), and cerebral infarction without residual deficits
CPT/HCPCS: 37215; 80048; 85025; 86850; 86900; 86901; 87635

== ENCOUNTER → 2022-04-15 | Outpatient (CLI) | payer MEDICARE, OTHER ==
--- NOTE | 2022-04-25 11:20 | BMR ---
EXAMINATION TYPE: MR breast BILAT wo/w con DATE OF EXAM: 04/15/2022 COMPARISON: 3-D screening mammogram January 23, 2022 BI-RADS 2 HISTORY: Dense Breast Tissue. Abnormal mammogram. TECHNIQUE: A series of fat and water weighted images in the long and short axis views of both breasts are obtained in conjunction with dynamic contrast MRI with subtraction technique. The patient was i njected with 4ml mL intravenous Gadavist gadolinium contrast. Three-dimensional and additional post processing imaging is created on independent workstation and reviewed during official interpretation of this study. FINDINGS: Extremely dense fibroglandular tissue bilaterally is redemonstrated. The T2 and STIR weight ed images show no significant cystic lesions or focal fluid collections. No suspicious axillary adeno juanita is noted bilaterally. Dynamic postcontrast imaging shows symmetric mild background enhancement. Delayed dynamic imaging shows no suspicious intramammary adenopathy. With regards to both breasts there is symmetric slight nipple inversion bilaterally. No abnormal skin thickening is seen bilaterally. Symmetric enhancement adjacent to inverted nipples as noted with alex ign increasing gradual enhancement on dynamic postcontrast imaging is thought physiologic. No patholo gic enhancement or enhancing masses are identified bilaterally. The chest wall appears intact bilater ally. Incidental cardiomegaly. Prominent left hepatic lobe is also noted. IMPRESSION: No convincing MRI evidence for malignancy in either breast. BI-RADS 2 benign findings both breasts. Recommendation: Patient is due for bilateral breast mammogram December 2022 to be back on annual schedul e.
== END | disposition home or self-care (01) ==
LOC: RADMRIMAIN 18:03
PROVIDERS: ATTEND Family Medicine
DX: R92.8 Other abnormal and inconclusive findings on diagnostic imaging of breast (principal)
CPT/HCPCS: C8908; A9585; 77049

== ENCOUNTER 2022-12-11 07:41 | Day surgery (SDC) | payer MEDICARE, OTHER ==
[2022-12-05 16:05] VITALS: BMI 16.5
[2022-12-11] MEDS ORDERED: ONDANSETRON 4 MG/2 ML VIAL IVP PRN (08:08)
[2022-12-11] MEDS ORDERED: LIDOCAINE 1% (10MG/ML) FOR IV START INTRADERMA PRN (08:08)
[2022-12-11] MEDS ORDERED: LACTATED RINGERS 1,000 ML IV SCH (08:08)
[2022-12-11 08:19] VITALS: TEMP 98.3
[2022-12-11] MEDS ORDERED: LIDOCAINE 2% INJ 20 MG/ML (2 ML VIAL) ONE (08:29)
[2022-12-11] MEDS ORDERED: PROPOFOL 10 MG/ML 20 ML VIAL IV ONE (08:29)
--- NOTE | 2022-12-11 08:58 | P.PCN ---
Date of Procedure: 12/11/22 Procedure(s) Performed: Brief history: Patient is a pleasant 77-year-old white female scheduled for an elective upper endoscopy as well as colonoscopy as a part of evaluation of progressive weight loss of almost 40 pounds in the last 1 year duration. She is been complaining of early satiety, epigastric fullness and change in bowel habits. Procedure performed: Esophagogastroduodenoscopy with biopsy Colonoscopy with snare polypectomy Preoperative diagnosis: Early satiety/epigastric fullness/progressive weight loss Change in bowel habits Anesthesia: MAC Procedure: After informed consent was obtained from the patient was brought into the endoscopy unit and IV sedation was administered by anesthesia under continuous monitoring. Initially upper endoscopy was done. The Olympus GF 160 video endoscope was inserted inserted into the mouth and esophagus intubated without any difficulty and was gradually advanced into the stomach and duodenum and carefully examined. The bulb and second part of the duodenum appeared normal. Masses were done from the duodenum to rule out celiac disease. The scope was then withdrawn into the stomach adequately insufflated with air and upon careful examination the antrum and body, and diffuse gastritis and biopsies were done from this area. Mucosa of the cardia and fundus appeared normal. The scope was then withdrawn into the esophagus. The GE junction was located at 40 cm to the incisors. It appeared regular with no erythema erosions or ulcerations. Rest of the esophagus appeared normal. Patient tolerated the procedure well. At this time the patient continued to remain sedation. Initial digital rectal examination was normal. Olympus CF 160 video colonoscope was then inserted into the rectum and gradually advanced to the cecum without any difficulty. Careful examination was performed as the scope was gradually being withdrawn. The prep was excellent. The cecum and 1 cm flat cecal polyp status post polypectomy. Mucosa of the ascending colon, transverse colon, descending colon, sigmoid colon and rectum appeared normal. Scattered sigmoid diverticulosis. Retroflexion was performed in the rectum and no lesions were noted. Patient tolerated the procedure well. Impression: 1. Upper endoscopy revealed diffuse gastritis involving the antrum of the stomach but no evidence of esophagitis or peptic ulcer disease 2. Colonoscopy revealed 1 cm flat cecal polyp status post polypectomy and scattered sigmoid diverticulosis Recommendations: Findings of this examination were discussed with the patient as well as her family. She was advised to follow with the biopsy results. If the biopsy results adenoma she can have a repeat colonoscopy in 3 years.
[2022-12-11 09:03] VITALS: PULSE 67; RESP 16
[2022-12-11 09:17] VITALS: BP 143/83
== END 2022-12-11 09:45 | disposition home or self-care (01) ==
LOC: ORWHC2ENDO 07:41
PROVIDERS: ATTEND Internal Medicine Gastroenterology
DX: D12.0 Benign neoplasm of cecum (principal); K29.50 Unspecified chronic gastritis without bleeding; I10 Essential (primary) hypertension; E78.5 Hyperlipidemia, unspecified; J44.9 Chronic obstructive pulmonary disease, unspecified; Z88.5 Allergy status to narcotic agent; Z87.891 Personal history of nicotine dependence; F12.90 Cannabis use, unspecified, uncomplicated; M06.9 Rheumatoid arthritis, unspecified; M79.7 Fibromyalgia; K21.9 Gastro-esophageal reflux disease without esophagitis; Z79.02 Long term (current) use of antithrombotics/antiplatelets; Z79.1 Long term (current) use of non-steroidal anti-inflammatories (NSAID); Z79.899 Other long term (current) drug therapy
CPT/HCPCS: 45385; 43239; J2704; J2001; 88305

== ENCOUNTER → 2023-04-07 | Outpatient (CLI) | payer MEDICARE, OTHER ==
--- NOTE | 2023-04-07 12:36 | FL ---
ESOPHOGRAM. HISTORY: Dysphagia Esophagram was performed per the air contrast technique. The patient swallowed barium and effervesce nt crystals without difficulty or delay. Esophageal peristalsis and motility appear to be within normal limits. There is no evidence for filling defect, mass or diverticulum. No hiatal hernia seen. Subsequently single contrast cervical esophagram was performed which demonstrates evidence of mild as piration. There is hypertrophy of the cricopharyngeus musculature with mild luminal narrowing. IMPRESSION: 1. Mild aspiration noted. 2. Hypertrophy of the cricopharyngeus musculature.
== END | disposition home or self-care (01) ==
LOC: RADUSWWP 10:34
PROVIDERS: ATTEND Family Medicine
DX: K29.60 Other gastritis without bleeding (principal)
CPT/HCPCS: 74220

== ENCOUNTER → 2023-05-19 | Outpatient (CLI) | payer MEDICARE, OTHER ==
[2023-05-19 14:02] LABS: African American GFR (CKD) >90 (>60 ml/min/1.73 sqM); Blood Urea Nitrogen 23 mg/dL (7-17); Non-African American GFR(CKD) 82 (>60 ml/min/1.73 sqM)
--- NOTE | 2023-05-21 10:17 | CT ---
EXAMINATION TYPE: CT abdomen pelvis w con CT DLP: 678 mGycm, Automated exposure control for dose reduction was used. DATE OF EXAM: 05/19/2023 2:57 PM COMPARISON: CT abdomen pelvis most recent from 08/28/2021. CLINICAL INDICATION:Female, 78 years old with history of R74.0, R53.83; weight loss TECHNIQUE: Standard CT of the abdomen and pelvis following the administration of 100 cc of Isovue 3 00 IV contrast material and oral contrast. Coronal and sagittal reformats were performed. FINDINGS: Posterior abdominal fat limits evaluation. LOWER CHEST: Visualized lung bases are clear. Mild centrilobular emphysematous changes. Mild cardiome elida. ABDOMEN LIVER: Unremarkable GALLBLADDER AND BILE DUCTS: Gallbladder is surgically absent with mild intrahepatic and extra hepatic biliary dilatation likely physiologic and a postcholecystectomy change. No evidence of choledocholit hiasis. PANCREAS: Unremarkable. SPLEEN: Unremarkable. ADRENAL GLANDS: Unremarkable. KIDNEYS AND URETERS: No evidence of hydronephrosis or renal calculus. The kidneys enhance symmetrical ly. Left inferior pole 2.8 cm cyst. Retroaortic left renal vein. PELVIS BLADDER: Incompletely distended but grossly unremarkable. REPRODUCTIVE: The uterus is surgically absent. Pelvic floor laxity. ABDOMEN & PELVIS STOMACH AND BOWEL: Stomach and duodenum are unremarkable. No focal bowel wall thickening or surroundi ng inflammatory changes. Mild to moderate colonic stool burden. Distal colonic diverticulosis without evidence for acute diverticulitis. Enteric contrast reaches the ascending colon. No evidence of filipe l obstruction. PERITONEUM: No evidence of pneumoperitoneum or free fluid. VASCULATURE: Stable infrarenal abdominal aortic aneurysm measuring up to 3.1 cm. Superior to this is focal ectasia measuring up to 2.1 cm. Atherosclerotic calcification of the aorta and its branches. Pe lvic phleboliths. MUSCULOSKELETAL: No acute osseous abnormalities. Moderate disc degeneration changes are present throu ghout the thoracolumbar spine. This is most prominent at L4-L5. Levocurvature of the lumbar spine. Gr rachael 1 anterolisthesis of L3 on L4 without evidence of pars defects. LYMPH NODES: No gross evidence for lymphadenopathy. SOFT TISSUE/ABDOMINAL WALL: Unremarkable IMPRESSION: 1. No acute abdominal/pelvic process. 2. Colonic diverticulosis without evidence for acute diverticulitis. 3. Mild to moderate colonic stool burden. 4. Stable infrarenal abdominal aortic aneurysm measuring up to 3.1 cm. 5. COPD changes.
== END | disposition home or self-care (01) ==
LOC: RADCTMAIN 12:32
PROVIDERS: ATTEND Family Medicine
DX: I71.43 Infrarenal abdominal aortic aneurysm, without rupture (principal); J44.9 Chronic obstructive pulmonary disease, unspecified; K57.30 Diverticulosis of large intestine without perforation or abscess without bleeding; K56.41 Fecal impaction; R53.83 Other fatigue; R74.01 Elevation of levels of liver transaminase levels; R63.4 Abnormal weight loss
CPT/HCPCS: 82565; 84520; 74177; 36415; Q9967

== ENCOUNTER → 2023-08-08 | Outpatient (CLI) | payer MEDICARE, OTHER ==
--- NOTE | 2023-08-08 13:44 | CT ---
EXAMINATION TYPE: CT chest w con DATE OF EXAM: 08/08/2023 COMPARISON: 06/29/2020 HISTORY: Abn wt loss CT DLP: 226 mGycm Automated exposure control for dose reduction was used. TECHNIQUE: CT scan of the chest is performed with IV Contrast, patient injected with 100 mL of Isovue 300. MIP Images are created on CT scanner and reviewed. 3D reconstructed images are created on an independent workstation and reviewed. FINDINGS: There are marked emphysematous changes particularly in the upper lobes there is a 3 mm nodule in the right lower lobe which was not definitely seen on the prior study but is most likely benign. There is no airspace consolidation. There is no pleural effusion or pneumothorax. The great vessels chest are normal is no mediastinal, hilar or axillary adenopathy. Limited scanning through the upper abdomen reveals no gross abnormality. No focal osseous lesions are seen.. IMPRESSION: 1. No acute cardiopulmonary disease. 2. New 2 to 3 mm pulmonary nodule in the right lower lobe which is most likely benign. Follow-up in 4 -6 months is recommended. 3. Marked emphysematous changes.
== END | disposition home or self-care (01) ==
LOC: RADCTMAIN 12:30
PROVIDERS: ATTEND Family Medicine
DX: J43.9 Emphysema, unspecified (principal); R63.4 Abnormal weight loss; R91.1 Solitary pulmonary nodule
CPT/HCPCS: 71260; Q9967

== ENCOUNTER → 2023-12-25 | Outpatient (CLI) | payer MEDICARE, OTHER ==
[2023-12-25 11:27] LABS: African American GFR (CKD) 90 (>60 ml/min/1.73 sqM); Blood Urea Nitrogen 22 mg/dL (7-17); Non-African American GFR(CKD) 78 (>60 ml/min/1.73 sqM)
--- NOTE | 2023-12-31 09:37 | CT ---
EXAMINATION TYPE: CT chest w con CT DLP: 225 mGycm, Automated exposure control for dose reduction was used. DATE OF EXAM: 12/25/2023 12:00 PM COMPARISON: Chest radiograph from same day. Multiple CTs of the chest with most recent on . CLINICAL INDICATION:Female, 78 years old with history of R91.1 SOLITARY PULMONARY NODULE; PH[facility], f/u viktor frey TECHNIQUE: Multiple axial images were obtained through the chest. Sagittal and coronal reformats were created for review. Contrast used:90cc mL of Isovue 300 with IV Contrast (None if empty) Oral contrast used: (None if empty) FINDINGS: LUNGS/ PLEURA: A previously identified 2.6 mm right lower lobe nodule is reidentified and unchanged. Furthermore on today's exam the nodule appears as if it could be partly normal branching vessel. St able patchy fibrosis inferior lingula. Moderate to severe emphysema present. The lung parenchyma ap pears otherwise unremarkable. AIRWAY: Patent and unremarkable. HEART: Size within normal limits. MEDIASTINUM: No gross evidence of adenopathy. VASCULATURE: No aortic aneurysm. MUSCULOSKELETAL: No acute osseous abnormalities SOFT TISSUES/LYMPH NODES: Unremarkable. LOWER NECK: No significant findings. UPPER ABDOMEN: No significant findings. A 2.5 cm left kidney lower pole cyst is identified. This ap pears simple and requires no follow-up. IMPRESSION: Stable exam. No acute process. Emphysema. Stable tiny right lower lobe nodule. Follow up recommendations for incidental pulmonary nodules, if there are any, are per [place] or [employer]. [email or web address]
== END | disposition home or self-care (01) ==
LOC: RADCTMAIN 10:48
PROVIDERS: ATTEND Family Medicine
DX: J43.9 Emphysema, unspecified (principal); R91.1 Solitary pulmonary nodule
CPT/HCPCS: 82565; 84520; 71260; 36415; Q9967

== ENCOUNTER → 2024-02-26 | Outpatient (CLI) | payer MEDICARE, OTHER ==
[2024-02-26 11:50] LABS: African American GFR (CKD) >90 (>60 ml/min/1.73 sqM); Blood Urea Nitrogen 18 mg/dL (7-17); Non-African American GFR(CKD) 86 (>60 ml/min/1.73 sqM)
--- NOTE | 2024-02-28 14:57 | CT ---
EXAMINATION TYPE: CT soft tissue neck w con DATE OF EXAM: 02/26/2024 COMPARISON: 02/05/2022 HISTORY: difficulty swallowing CT DLP: 299.1 mGycm CONTRAST: Patient injected with 100 mL of Isovue 300. TECHNIQUE: Axial images at 3 mm thick sections. Reconstructed images in the coronal plane and sagitt al plane are reviewed. FINDINGS: Limited CT sections are obtained the lung apices. The lung apices appear clear. Moderate e mphysematous changes are evident. Trachea appears clear. CT neck: The torus tubarius and fossa of Rosenmuller are normal. C Engineer spaces are normal. Some mild mucosal thickening or debris may be within the posterior left sphenoid sinus. Paranasal sinuses and mastoid air cells are otherwise clear. Left septal deviation is present. Parotid glands appear normal and symmetrical. Submandibular glands, are normal. Parapharyngeal spac es are normal. No suspicious adenopathy is evident. The hypopharynx appears within normal limits. Vocal cord level appear symmetrical. Thyroid as visualized is normal. Degenerative changes are within the cervical spine. IMPRESSION: 1. No suspicious acute soft tissue neck changes radiographically apparent.
== END | disposition home or self-care (01) ==
LOC: RADCTMAIN 10:45
PROVIDERS: ATTEND Physician Assistant Medical
DX: R13.10 Dysphagia, unspecified (principal); R22.1 Localized swelling, mass and lump, neck
CPT/HCPCS: 82565; 84520; 70491; 36415; Q9967

== ENCOUNTER → 2024-03-15 | Outpatient (CLI) | payer MEDICARE, OTHER ==
--- NOTE | 2024-03-15 23:06 | MM ---
Reason for Exam: Screening (asymptomatic). Last mammogram was performed 2 year(s) and 2 month(s) ago. Patient History: Right ovary removed at age 57. Hysterectomy at age 57. Postmenopausal. Estrogen for 6 months from age 57 until age 57. 02/28/2020, Benign Excisional Biopsy on the left side. Risk Values: Leanna 5 year model risk: 1.4%. NCI Lifetime model risk: 2.6%. Prior Study Comparison: 04/14/2018 Screening Mammogram, Unknown. 07/06/2020 Bilateral Screening Mammogram, [facility]. 01/23/2022 Bilateral Screening Mammogram, [facility]. Tissue Density: The breasts are extremely dense, which lowers the sensitivity of mammography. Findings: Analyzed By CAD. The pattern is symmetrical. Multiple benign-appearing rounded spherical calcifications are present. Benign vascular calcification is present bilaterally. No significant interval change is evident. No suspicious groups of microcalcifications, spiculated or lobular masses, architectural distortion or other secondary signs of malignancy are mammographically apparent. Overall Assessment: Benign, BI-RAD 2 Management: Screening Mammogram of both breasts in 1 year. A negative mammogram report should not preclude additional follow up of suspicious palpable abnormalities. Patient should continue monthly self breast exam. A clinical breast exam by your physician is recommended on an annual basis and results should be correlated with mammographic findings. Note on Leanna scores and lifetime risk: 1. A Leanna score greater than 3% is considered moderate risk. If this is the case, consider specialist referral to assess eligibility for a risk reducing agent. 2. If overall lifetime risk for the development of breast cancer is 20% or higher, the patient may qualify for future screening with alternating mammogram and breast MRI. Electronically signed and approved by: Henrique Mejias D.O. Radiologis
== END | disposition home or self-care (01) ==
LOC: RADMAMWWP 11:12
PROVIDERS: ATTEND Family Medicine
DX: Z12.31 Encounter for screening mammogram for malignant neoplasm of breast (principal)
CPT/HCPCS: 77063; 77067

== ENCOUNTER 2024-04-09 13:53 | Emergency (ER) | payer MEDICARE, OTHER ==
[2024-04-09] MEDS: LORazepam 1 MG TAB PO STA (14:49)
[2024-04-09] MEDS: SODIUM CHLORIDE 0.9% 1,000 ML IV ONE (15:31)
[2024-04-09 15:37] LABS: Basophils % (A) 0 %; Eosinophils # (A) 0.1 k/uL (0-0.7); Eosinophils % (A) 1 %; HCT 48.1 % (34.0-46.0); HGB 15.4 gm/dL (11.4-16.0); Lymphocytes # (A) 2.1 k/uL (1.0-4.8); Lymphocytes % (A) 26 %; MCH 33.1 pg (25.0-35.0); MCV 103.3 fL (80.0-100.0); Macrocytosis Slight; Mean Platelet Volume 7.5; Monocytes # (A) 0.5 k/uL (0-1.0); Monocytes % (A) 6 %; Neutrophils # (A) 5.2 k/uL (1.3-7.7); Neutrophils % (A) 65 %; Platelet Count 227 k/uL (150-450); RBC 4.66 m/uL (3.80-5.40); RDW 13.1 % (11.5-15.5)
[2024-04-09 15:47] LABS: Appearance,Urine Clear (Clear); Bilirubin,Urine Negative (Negative); Blood,Urine Negative (Negative); Color,Urine Colorless; Glucose,Urine (UA) Negative (Negative); Ketones,Urine Negative (Negative); Leukocyte Esterase,Urine Negative (Negative); Nitrite,Urine Negative (Negative); Protein,Urine Negative (Negative); Specific Gravity,Urine 1.008 (1.001-1.035); Urobilinogen,Urine <2.0 mg/dL (<2.0)
--- NOTE | 2024-04-09 15:54 | ED ---
General Adult HPI - General Chief complaint: Weakness Stated complaint: weakness Time Seen by Provider: 04/09/24 14:32 Source: patient, RN notes reviewed, old records reviewed Mode of arrival: wheelchair Limitations: no limitations - History of Present Illness Initial comments: 79-year-old female presenting for evaluation of poor appetite and weight loss. Patient symptoms have been present for the past 2 years. She states that she just has no desire to eat. She does report coughing episodes when she does eat. No vomiting. She is able to get down 1 or 2 high-protein shakes a day but otherwise has quite minimal intake. She has tried cannabis containing products as appetite stimulants. She has had colonoscopy and EGD within the last 2 years. - Related Data Home Medications Medication Instructions Recorded Confirmed ALPRAZolam [Xanax] 1.5 mg PO QAM 03/26/22 12/11/22 Atorvastatin [Lipitor] 80 mg PO HS 03/26/22 12/11/22 Clopidogrel [Plavix] 75 mg PO DAILY 03/26/22 12/05/22 QUEtiapine [SEROquel] 200 mg PO HS 03/26/22 12/11/22 FLUoxetine HCL [PROzac] 10 mg PO DAILY 11/28/22 12/05/22 Losartan [Cozaar] 50 mg PO HS 11/28/22 12/11/22 Multivit/Iron Sulf/Folic Acid 1 each PO DAILY 11/28/22 11/28/22 [Multivitamin with Iron] Pantoprazole Sodium 40 mg PO DAILY 11/28/22 12/11/22 amLODIPine [Norvasc] 5 mg PO QAM 11/28/22 11/28/22 droNABinol [Marinol] 2.5 mg PO HS 11/28/22 12/11/22 ondansetron HCL [Zofran] 8 mg PO Q8HR PRN 11/28/22 12/11/22 Cyanocobalamin (Vitamin B-12) 5,000 mcg PO DAILY 12/05/22 12/11/22 [Vitamin B-12] Psyllium Husk [Fiber Capsule] 0.4 gm PO DAILY 12/05/22 12/11/22 Allergies Allergy/AdvReac Type Severity Reaction Status Date / Time hydroxychloroquine sulfate AdvReac Anaphylaxis Verified 04/09/24 14:00 [From Plaquenil] Review of Systems ROS Statement: Those systems with pertinent positive or pertinent negative responses have been documented in the HPI. ROS Other: All systems not noted in ROS Statement are negative. Past Medical History Past Medical History: COPD, Fibromyalgia, GERD/Reflux, Hyperlipidemia, Hypertension, Osteoarthritis (OA), Pneumonia, Rheumatoid Arthritis (RA), Thyroid Disorder Additional Past Medical History / Comment(s): frequent nausea,hx Shrogren's, CANNOT PUT ON WEIGHT. PT STATES WAS TOLD SHE HAD "CORRECTION COVID" History of Any Multi-Drug Resistant Organisms: None Reported Past Surgical History: Cholecystectomy, Hysterectomy, Joint Replacement, Orthopedic Surgery, Tonsillectomy Additional Past Surgical History / Comment(s): Bilateral carpal tunnel release. COLONOSCOPY/EGD, PARTIAL RT KNEE REPLACEMENT Past Anesthesia/Blood Transfusion Reactions: No Reported Reaction Past Psychological History: Anxiety, Depression Smoking Status: Current every day smoker - Past Family History Mother Family Medical History: No Reported History General Exam Limitations: no limitations General appearance: alert, in no apparent distress Head exam: Present: atraumatic, normocephalic Eye exam: Present: normal appearance. Absent: PERRL, EOMI ENT exam: Present: normal exam Neck exam: Present: normal inspection. Absent: tenderness, meningismus Respiratory exam: Present: normal lung sounds bilaterally. Absent: respiratory distress, wheezes Cardiovascular Exam: Present: regular rate, normal rhythm GI/Abdominal exam: Present: soft. Absent: distended, tenderness, guarding Extremities exam: Present: normal inspection, normal capillary refill. Absent: pedal edema, calf tenderness Neurological exam: Present: alert, oriented X3 Psychiatric exam: Present: normal affect, normal mood Skin exam: Present: warm, dry, intact. Absent: cyanosis, diaphoretic Course Vital Signs 04/09/24 13:57 Temperature 97.9 F Pulse Rate 76 Respiratory 16 Rate Blood Pressure 194/98 O2 Sat by Pulse 99 Oximetry Medical Decision Making - Medical Decision Making Was pt. sent in by a medical professional or institution ([facility], [employer], urgent care, hospital, or retirement...) When possible be specific @ -No Did you speak to anyone other than the patient for history (EMS, parent, family, police, friend...)? What history was obtained from this source @ -No Did you review nursing and triage notes (agree or disagree)? Why? @ -I reviewed and agree with nursing and triage notes Were old charts reviewed (outside hosp., previous admission, EMS record, old EKG, old radiological studies, urgent care reports/EKG's, retirement records)? Report findings @ -No old charts were reviewed Differential Weakness: Hypoglycemia, shock, sepsis, hyponatremia, anemia, infection, OH, ETOH, adverse medicine reaction, overdose, stroke, this is not meant to be an all-inclusive list. EKG interpreted by me (3pts min.). @ -[Sinus rhythm left axis, rate of 68, TX interval 151, QRS duration 94, QTc [address] segment elevation. X-rays interpreted by me (1pt min.). @ -None done CT interpreted by me (1pt min.). @ -None done U/S interpreted by me (1pt. min.). @ -None done What testing was considered but not performed or refused? (CT, X-rays, U/S, labs)? Why? @ -None What meds were considered but not given or refused? Why? @ -None Did you discuss the management of the patient with other professionals (prof ivanas i.e. , PA, [employer], lab, RT, psych nurse, social media manager, propeller layout worker, teacher, ground defence officer, pillowcase turner)? Give summary @ -No Was smoking cessation discussed for >3mins.? @ -No Was critical care preformed (if so, how long)? @ -No Were there social determinants of health that impacted care today? How? (Homelessness, low income, unemployed, alcoholism, drug addiction, transportation, low edu. Level, literacy, decrease access to med. care, nursing home, rehab)? @ -No Was there de-escalation of care discussed even if they declined (Discuss DNR or withdrawal of care, Hospice)? DNR status @ -No What co-morbidities impacted this encounter? (DM, HTN, Smoking, COPD, CAD, Cancer, CVA, ARF, Chemo, Hep., AIDS, mental health diagnosis, sleep apnea, morbid obesity)? @ -None Was patient admitted / discharged? Hospital course, mention meds given and route, prescriptions, significant lab abnormalities, going to OR and other pertinent info. @ -79-year-old female with weight loss and poor appetite. Patient states this has been an ongoing issue for 2 years. She does have a primary care provider a nd has informed of the complaint of weight loss. Patient states she has had workup from other providers including EGD and colonoscopy. The patient is hypertensive upon arrival with otherwise stable vitals. She has normal CBC, normal CMP, negative urinalysis. Her protein levels are normal. Her e lectrolytes are normal her kidney function is normal. I do feel this patient is stable for outpatient management of poor appetite and weight loss. She is given instructions on consumption of high-calorie nutritious foods. She is encouraged to quit smoking. Undiagnosed new problem with uncertain prognosis? @ -No Drug Therapy requiring intensive monitoring for toxicity (Heparin, Nitro, Insulin, Cardizem)? @ -No Were any procedures done? @ -No Diagnosis/symptom? @ -wt Loss, poor appetite Acute, or Chronic, or Acute on Chronic? @ -Chronic Uncomplicated (without systemic symptoms) or Complicated (systemic symptoms)? @ -Default Side effects of treatment? @ -No Exacerbation, Progression, or Severe Exacerbation? @ -No Poses a threat to life or bodily function? How? (Chest pain, USA, OH, pneumonia, PE, COPD, DKA, ARF, appy, cholecystitis, CVA, Diverticulitis, Homicidal, Suicidal, threat to staff... and all critical care pts) @ -No - Lab Data Result diagrams: 04/09/24 15:10 04/09/24 15:10 Lab Results 04/09/24 04/09/24 04/09/24 Range/Units 15:10 15:10 15:10 WBC 8.0 (3.8-10.6) k/uL RBC 4.66 (3.80-5.40) m/uL Hgb 15.4 (11.4-16.0) gm/dL Hct 48.1 H (34.0-46.0) % MCV 103.3 H (80.0-100.0) fL MCH 33.1 (25.0-35.0) pg MCHC 32.0 (31.0-37.0) g/dL RDW 13.1 (11.5-15.5) % Plt Count 227 (150-450) k/uL MPV 7.5 Neutrophils % 65 % Lymphocytes % 26 % Monocytes % 6 % Eosinophils % 1 % Basophils % 0 % Neutrophils # 5.2 (1.3-7.7) k/uL Lymphocytes # 2.1 (1.0-4.8) k/uL Monocytes # 0.5 (0-1.0) k/uL Eosinophils # 0.1 (0-0.7) k/uL Basophils # 0.0 (0-0.2) k/uL Macrocytosis Slight Sodium 139 (137-145) mmol/L Potassium 4.2 (3.5-5.1) mmol/L Chloride 102 (98-107) mmol/L Carbon Dioxide 34 H (22-30) mmol/L Anion Gap 3 mmol/L BUN 17 (7-17) mg/dL Creatinine 0.60 (0.52-1.04) mg/dL Est GFR (CKD-EPI)AfAm >90 (>60 ml/min/1.73 sqM) Est GFR (CKD-EPI)NonAf 88 (>60 ml/min/1.73 sqM) Glucose 122 H (74-99) mg/dL Calcium 9.7 (8.4-10.2) mg/dL Magnesium 2.3 (1.6-2.3) mg/dL Total Bilirubin 0.7 (0.2-1.3) mg/dL AST 41 H (14-36) U/L ALT 29 (4-34) U/L Alkaline Phosphatase 72 (38-126) U/L Total Protein 6.3 (6.3-8.2) g/dL Albumin 4.1 (3.5-5.0) g/dL Urine Color Colorless Urine Appearance Clear (Clear) Urine pH 7.0 (5.0-8.0) Ur Specific Left Hand 1.008 (1.001-1.035) Urine Protein Negative (Negative) Urine Glucose (UA) Negative (Negative) Urine Ketones Negative (Negative) Urine Blood Negative (Negative) Urine Nitrite Negative (Negative) Urine Bilirubin Negative (Negative) Urine Urobilinogen <2.0 (<2.0) mg/dL Ur Leukocyte Esterase Negative (Negative) Disposition Clinical Impression: Weight loss, abnormal, Poor appetite Disposition: HOME SELF-CARE Condition: Fair Additional Instructions: Please follow closely with your primary care provider. Please inform them of the weight loss as well as symptoms you are having. Please drink multiple protein containing shakes daily. Please eat as much high-calorie food as you can. Is patient prescribed a controlled substance at d/c from ED?: No Referrals: Dalton Franks MD [Primary Care Provider] - 1-2 days Time of Disposition: 16:33
[2024-04-09 16:02] LABS: ALT 29 U/L (4-34); AST 41 U/L (14-36); African American GFR (CKD) >90 (>60 ml/min/1.73 sqM); Albumin 4.1 g/dL (3.5-5.0); Alkaline Phosphatase 72 U/L (38-126); Anion Gap 3 mmol/L; Blood Urea Nitrogen 17 mg/dL (7-17); Calcium 9.7 mg/dL (8.4-10.2); Carbon Dioxide 34 mmol/L (22-30); Chloride 102 mmol/L (98-107); Glucose 122 mg/dL (74-99); Magnesium 2.3 mg/dL (1.6-2.3); Non-African American GFR(CKD) 88 (>60 ml/min/1.73 sqM); Potassium 4.2 mmol/L (3.5-5.1); Sodium 139 mmol/L (137-145); Total Bilirubin 0.7 mg/dL (0.2-1.3); Total Protein 6.3 g/dL (6.3-8.2)
[2024-04-09 16:41] VITALS: BP 202/109; PULSE 68; RESP 18; TEMP 98.3
== END 2024-04-09 17:04 | disposition home or self-care (01) ==
LOC: EC 13:53
DX: R53.1 Weakness (principal); R63.4 Abnormal weight loss; R63.0 Anorexia; F17.200 Nicotine dependence, unspecified, uncomplicated; Z88.8 Allergy status to other drugs, medicaments and biological substances
CPT/HCPCS: 36415; 80053; 81003; 83735; 85025; 93005; 96360; 99285

== ENCOUNTER 2024-06-15 10:14 | Day surgery (SDC) | payer MEDICARE, OTHER ==
[2024-06-11 09:30] VITALS: BMI 15.5
[~2024-06-15 10:14] MED LIST changes: +ALPRAZolam 0.25 MG TAB PO PRN; +ALPRAZolam 0.5 MG TAB PO PRN; -ASPIRIN 325 MG TAB PO PRN; +HEPARIN SODIUM,PORCINE (1 ML) 2,500 UNIT in SODIUM CHLORIDE 0.9% 250 ML IRRIGATION PRN; +HEPARIN SODIUM,PORCINE 10,000 UNIT in SODIUM CHLORIDE 0.9% 1,000 ML IRRIGATION PRN; -SODIUM CHLORIDE 0.9% 1,000 ML in EMPTY BAG 1 BAG IV ONE; -ceFAZolin 2 GM in SODIUM CHLORIDE 0.9% 500 ML 500 ML IRRIGATION PRN
[2024-06-15 10:47] VITALS: RESP 16; TEMP 98.2
[2024-06-15 10:47] LABS: Basophils % (A) 0 %; Eosinophils # (A) 0.1 k/uL (0-0.7); Eosinophils % (A) 1 %; HCT 48.3 % (34.0-46.0); HGB 15.9 gm/dL (11.4-16.0); Lymphocytes # (A) 2.4 k/uL (1.0-4.8); Lymphocytes % (A) 26 %; MCH 33.7 pg (25.0-35.0); MCHC 32.8 g/dL (31.0-37.0); MCV 102.6 fL (80.0-100.0); Macrocytosis Slight; Mean Platelet Volume 7.7; Monocytes # (A) 0.5 k/uL (0-1.0); Monocytes % (A) 5 %; Neutrophils # (A) 6.1 k/uL (1.3-7.7); Neutrophils % (A) 66 %; Platelet Count 281 k/uL (150-450); RBC 4.71 m/uL (3.80-5.40); RDW 14.2 % (11.5-15.5); WBC 9.3 k/uL (3.8-10.6)
[2024-06-15] MEDS: ASPIRIN 325 MG TAB PO STA (10:48)
[2024-06-15] MEDS: SODIUM CHLORIDE 0.9% 1,000 ML in EMPTY BAG 1 BAG IV SCH (10:48)
[2024-06-15] MEDS: IV FLUID CONTINUATION 1,000 ML IV ONE (10:49)
[2024-06-15 11:03] LABS: African American GFR (CKD) >90 (>60 ml/min/1.73 sqM); Anion Gap 7 mmol/L; Blood Urea Nitrogen 14 mg/dL (7-17); Carbon Dioxide 35 mmol/L (22-30); Chloride 98 mmol/L (98-107); Glucose 119 mg/dL (74-99); Non-African American GFR(CKD) 84 (>60 ml/min/1.73 sqM); Potassium 3.9 mmol/L (3.5-5.1); Sodium 140 mmol/L (137-145)
[2024-06-15] MEDS: MIDAZOLAM 2 MG/2 ML VIAL IVP ONE (12:04)
[2024-06-15] MEDS: fentaNYL (PF) 50 MCG/ML 2 ML AMP IVP ONE (12:04)
[2024-06-15] MEDS: LIDOCAINE 1% INJ 10MG/ML (20 ML MDV) SQ ONE (12:06)
[2024-06-15] MEDS: VERAPAMIL SYRINGE (5 MG/10 ML) INTRAARTER ONE (12:08)
[2024-06-15] MEDS: HEPARIN SODIUM 1,000 UN/ML (10ML VL) IVP ONE (12:13)
[2024-06-15] MEDS: HEPARIN SODIUM,PORCINE (1 ML) 2,500 UNIT in SODIUM CHLORIDE 0.9% 250 ML IRRIGATION ONE (12:27)
[2024-06-15] MEDS: HEPARIN SODIUM,PORCINE 10,000 UNIT in SODIUM CHLORIDE 0.9% 1,000 ML IRRIGATION ONE (12:27)
[2024-06-15] MEDS: IOPAMIDOL-370 200ML BTL INJ ONE (12:29)
[2024-06-15 14:34] VITALS: BP 150/83; PULSE 58
--- NOTE | 2024-06-16 16:44 | P.CARDCATH ---
Date of Procedure: 06/15/24 Description of Procedure: DIAGNOSTIC CORONARY ANGIOGRAPHY and LEFT HEART CATH REPORT PROCEDURES PERFORMED: Left heart catheterization Selective coronary angiography Moderate conscious sedation 24 mins [Ultrasound assisted] Right radial access INDICATION: Frequent premature ventricle contractions not responding to conservative medical therapy. CONSENT: I have explained the procedural steps of above-mentioned procedures in layman's terms to the patient. I discussed the risks (including but not limited to stroke, emergent vascular or cardiac surgery or ), benefits and alternative therapies for the above-mentioned procedure. I discussed the risks of sedation/analgesia and blood product administration (if indicated). The patient has indicated understanding and acceptance of these risks. Conscious Sedation: Patient's ECG, heart rate, blood pressure, pulse oximetry were monitored throughout the duration of procedure under my direct supervision. 1 mg Versed and [50] mcg Fentanyl were used for induction of moderate conscious sedation. Total duration of moderate concious sedation 24 minutes. PROCEDURE: After explaining the risks, benefits and alternatives of the above mentioned procedures in detail to the patient, informed consent was obtained. Patient was taken to the catheterization lab, prepped and draped in usual sterile fashion using universal precuations. Ultrasound was used to identify the radial artery. 1% lidocaine was infiltrated over the right radial artery. A 6-Hungarian sheath was placed and secured in the right radial artery using modified Seldinger technique. The sheath was flushed and 5 mg verapamil was administered intra-arterially. J tipped wire was advanced under fluoroscopic guidance. Once the wire tip reached aortic root 3000 units of IV heparin was given. Over the wire JR4 diagnostic catheter was advanced. The wire in place the catheter was manipulated to cross the aortic valve and entered into LV under fluoroscopy guidance. The wire was removed and the catheter was flushed. LV pressures were obtained and pullback was performed under fluoroscopy. Catheter was manipulated to selectively engage the right coronary ostium. Right coronary angiography was performed in different angiographic projections. The JR4 diagnostic catheter was exchanged for a JL 3.5 diagnostic catheter over the J-wire. The wire was removed, catheter was flushed and manipulated under fluoroscopy but could not selectively engage the left coronary ostium. This catheter was exchanged for a 5 Hungarian JL 4 diagnostic catheter. This catheter failed to engage the left coronary ostium selectively. This catheter was exchanged for a 6 Hungarian Luther catheter. This catheter was manipulated to selectively the left coronary ostium. Left coronary angioplasty was performed in different angiographic projections. Catheter was removed over the wire. Radial sheath was flushed. The right radial sheath was removed and a TR band was placed with excellent patent hemostasis was achieved. The patient tolerated the procedure well. Patient was transported back to the post catheterization holding area in stable condition. Angiographic images were reviewed in detail. HEMODYNAMICS: Aortic Pressure: 130/75 mmHg. LV pressure: 126/10 mmHg. LVEDP 14 mmHg. There was no significant gradient across the aortic valve. SELECTIVE CORONARY ARTERIOGRAPHY: LEFT MAIN: The left main is short and has calcific luminal irregularities. It bifurcates into the LAD and circumflex. Left main appears angiographically normal. LEFT ANTERIOR DESCENDING CORONARY ARTERY: Ostium of the LAD has 30 to 40% calcific stenosis. Proximal LAD has diffuse 30 to 40% calcific disease. Mid LAD has 20 to 30% calcific disease. Distal LAD appears angiographically patent. It gives rise to a small diagonal 1 branch and a medium diagonal 2 branch which are angiographically patent with mild irregularities. LEFT CIRCUMFLEX CORONARY ARTERY: LCx is large caliber. It gives rise to a large OM1 branch is a 3.25 mm vessel and is angiographically patent. Mid LCx bifurcates into a AV groove branch and a small OM 2 branch which are angiographically patent. AV groove branch distally gives a small OM branches and PL branches which are angiographically patent. It is nondominant vessel. Left circumflex is a moderate caliber vessel. It appears angiographically normal. RIGHT CORONARY ARTERY: Dominant vessel. Proximal RCA is patent. Mid RCA has chronic total occlusion. There are robust [id number] collaterals retrogradely filling PDA and PL branches. IMPRESSION: RECYCLABLE MAT[employer] DISTRIBUTOR of mid RCA, with robust [id number] collaterals filling PDA and PL branches retrogradely Mild diffuse calcific disease PLAN: Aggressive risk factor modification per most recent ACC/AHA guidelines. 125 cc fluids for 4 hours Discharge home in 4 hours Follow-up in the office in 1-2 weeks. Performing Physician Mahin Vaughan MD, FACC, RPVI Thank you for allowing [facility] to participate in this patient's care. Feel free to reach out in case of any followup questions.
== END 2024-06-15 15:36 | disposition home or self-care (01) ==
LOC: CATHCVL 10:14
PROVIDERS: ATTEND Student in an Organized Health Care Education/Training Program
DX: I25.10 Atherosclerotic heart disease of native coronary artery without angina pectoris
CPT/HCPCS: 80048; 85025; 93458

== ENCOUNTER → 2024-08-13 | Day surgery (SDC) | payer MEDICARE, OTHER ==
[~2024-08-13] MED LIST changes: -ALPRAZolam 0.25 MG TAB PO PRN; -ALPRAZolam 0.5 MG TAB PO PRN; -HEPARIN SODIUM,PORCINE (1 ML) 2,500 UNIT in SODIUM CHLORIDE 0.9% 250 ML IRRIGATION PRN; -HEPARIN SODIUM,PORCINE 10,000 UNIT in SODIUM CHLORIDE 0.9% 1,000 ML IRRIGATION PRN; +LACTATED RINGERS 1,000 ML IV SCH; +LIDOCAINE 1% INJ 10MG/ML (20 ML MDV) ONE; -NITROGLYCERIN SL TABS 0.4 MG TAB SUBLINGUAL PRN; +PROPOFOL 10 MG/ML 20 ML VIAL IV ONE
[2024-08-13 07:24] VITALS: TEMP 97.2
[2024-08-13] MEDS: IV FLUID CONTINUATION 1,000 ML IV ONE (07:27)
[2024-08-13] MEDS: LACTATED RINGERS 1,000 ML BAG IV STA (07:27)
--- NOTE | 2024-08-13 07:57 | P.PCN ---
Date of Procedure: 08/13/24 Procedure(s) Performed: BRIEF HISTORY: Patient is a 79-year-old, pleasant, white female scheduled for an upper endoscopy as a part evaluation of GERD/intermittent dysphagia to solids and progressive weight loss of 30 pounds in the last 2 years duration. PROCEDURE PERFORMED: Esophagogastroduodenoscopy with biopsy. PREOPERATIVE DIAGNOSIS: GERD/intermittent dysphagia to solids and progressive weight loss. IV sedation per anesthesia. PROCEDURE: After informed consent was obtained, the patient was brought into the endoscopy unit. IV sedation was administered by Anesthesia under continuous monitoring. Initially the Olympus GIF-140 video endoscope was inserted into the mouth. Esophagus intubated without any difficulty. It was gradually advanced into the stomach and duodenum and carefully examined. The bulb and the second part of the duodenum appeared normal. Cold biopsies were done from the duodenum to evaluate for celiac disease. The scope at this time was withdrawn to the stomach, adequately insufflated with air, and upon careful examination, mucosa of the antrum, mild gastritis and biopsies were done from this area. Mucosa body, cardia and the fundus appeared normal. The scope was then withdrawn into the esophagus. The GE junction was located at 39 cm from the incisors. The esophagus appeared normal. There were no erosions or ulcerations seen, no evidence of esophageal stricture. Multiple biopsies were done from mid and distal esophagus and the patient tolerated the procedure well. IMPRESSION: 1. Mild antral gastritis. 2. Normal-appearing esophagus with no evidence of esophagitis or esophageal stricture. 3. Normal-appearing duodenum status post multiple biopsies rule out celiac disease. RECOMMENDATIONS: The findings of this examination were discussed with the patient as well as her family. She was advised to follow with the biopsy results. Continue with Protonix 40 mg twice daily and follow antireflux measures..
[2024-08-13 08:05] VITALS: RESP 16
[2024-08-13 08:33] VITALS: BP 150/76; PULSE 65
== END | disposition home or self-care (01) ==
LOC: ORWHC2ENDO 06:43
PROVIDERS: ATTEND Internal Medicine Gastroenterology
DX: K21.00 Gastro-esophageal reflux disease with esophagitis, without bleeding (principal); K29.50 Unspecified chronic gastritis without bleeding; I10 Essential (primary) hypertension; I49.3 Ventricular premature depolarization; E78.5 Hyperlipidemia, unspecified; J44.9 Chronic obstructive pulmonary disease, unspecified; M19.90 Unspecified osteoarthritis, unspecified site; M06.9 Rheumatoid arthritis, unspecified; M35.00 Sjogren syndrome, unspecified; F17.210 Nicotine dependence, cigarettes, uncomplicated; Z79.02 Long term (current) use of antithrombotics/antiplatelets; Z79.899 Other long term (current) drug therapy; Z90.89 Acquired absence of other organs; Z98.890 Other specified postprocedural states
CPT/HCPCS: 43239; J2003; J2704; 88305

== ENCOUNTER → 2024-10-14 | Outpatient (CLI) | payer MEDICARE, OTHER ==
--- NOTE | 2024-10-14 14:54 | FL ---
EXAMINATION TYPE: FL barium swallow DATE OF EXAM: 10/14/2024 CLINICAL HISTORY: Dysphagia. Cough and congestion when eating for years. TECHNIQUE: A double contrast esophagram is performed utilizing air and barium. A total of 30 second s of fluoroscopic time was utilized during procedure and 32 images obtained. Total DAP = n/a. COMPARISON: Prior study April 07, 2023 FINDINGS: Initial images show the esophagus to have normal motility and emptying into the stomach. N o evidence of fixed hiatal hernia or suspicious focal stricture stricture noted. There was aspiration identified to the trachea and examination had to be terminated. IMPRESSION: Suboptimal study with aspiration. Aspiration was present on 2022 study. Further investiga tion with speech therapy consultation and modified barium swallow under fluoroscopy with speech thera pist should be considered. [facility], , 10/14/2024 2:51 PM
== END | disposition home or self-care (01) ==
LOC: RADFLMAIN 10:29
PROVIDERS: ATTEND Family Medicine
DX: R13.10 Dysphagia, unspecified (principal)
CPT/HCPCS: 74220

== ENCOUNTER 2025-03-22 11:48 | Inpatient (IN) | payer MEDICARE, OTHER ==
--- NOTE | 2025-03-22 12:19 | ED ---
General Adult HPI - General Chief complaint: Shortness of Breath Stated complaint: Shortness of breath Time Seen by Provider: 03/22/25 12:04 Source: patient, EMS, RN notes reviewed Mode of arrival: EMS Limitations: no limitations - History of Present Illness Initial comments: Patient is a 80-year-old female present to the emergency department with jamel rns with difficulty breathing. Onset of symptoms was around a week ago. Patient has occasional cough with minimal clear sputum. No fever. No upper respiratory congestion. No calf pain. No chest pain. Symptoms are similar to previous COPD. - Related Data Home Medications Medication Instructions Recorded Confirmed ALPRAZolam [Xanax] 1.5 mg PO QAM 03/26/22 08/13/24 Atorvastatin [Lipitor] 80 mg PO HS 03/26/22 08/13/24 Clopidogrel [Plavix] 75 mg PO DAILY 03/26/22 08/13/24 QUEtiapine [SEROquel] 200 mg PO HS 03/26/22 08/13/24 Losartan [Cozaar] 50 mg PO HS 11/28/22 08/13/24 Multivit/Iron Sulf/Folic Acid 1 each PO DAILY 11/28/22 08/13/24 [Multivitamin with Iron] ondansetron HCL [Zofran] 8 mg PO Q8HR PRN 11/28/22 08/13/24 Alendronate Sodium [Fosamax] 70 mg PO MO 04/30/24 08/13/24 Fluticasone/Umeclidin/Vilanter 1 puff INHALATION DAILY 04/30/24 08/13/24 [Trelegy Ellipta 100-62.5-25] Metoprolol Succinate (ER) [Toprol 50 mg PO DAILY 04/30/24 08/13/24 Xl] Unk Albuterol Inhaler 2 puff INHALATION DIRECTED PRN 04/30/24 08/13/24 Allergies Allergy/AdvReac Type Severity Reaction Status Date / Time hydroxychloroquine sulfate Allergy Severe Anaphylaxis Verified 03/22/25 11:59 [From Plaquenil] Review of Systems ROS Statement: Those systems with pertinent positive or pertinent negative responses have been documented in the HPI. ROS Other: All systems not noted in ROS Statement are negative. Constitutional: Denies: fever Eyes: Denies: eye pain ENT: Denies: ear pain Respiratory: Reports: as per HPI, cough, dyspnea Cardiovascular: Denies: chest pain Endocrine: Reports: fatigue Past Medical History Past Medical History: COPD, GERD/Reflux, Hyperlipidemia, Hypertension, Osteoarthritis (OA), Pneumonia, Rheumatoid Arthritis (RA) Additional Past Medical History / Comment(s): Frequent nausea, coughs when eating and is not able to eat as much as she needs, CANNOT PUT ON WEIGHT. 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 Hx of Sjorgren's. Skipping heart beats per pt. SOB with exertion. Deep severe itching to axilla, upper chest and right back. History of Any Multi-Drug Resistant Organisms: None Reported Past Surgical History: Cholecystectomy, Hysterectomy, Joint Replacement, Orthopedic Surgery, Tonsillectomy Additional Past Surgical History / Comment(s): Bilateral carpal tunnel release, COLONOSCOPY/EGD, PARTIAL RIGHT KNEE REPLACEMENT. Past Anesthesia/Blood Transfusion Reactions: No Reported Reaction Past Psychological History: Anxiety, Depression Smoking Status: Current every day smoker - Past Family History Mother Family Medical History: Diabetes Mellitus General Exam Limitations: no limitations General appearance: alert, in no apparent distress Head exam: Present: normocephalic Eye exam: Present: normal appearance Neck exam: Present: normal inspection Respiratory exam: Present: wheezes, decreased breath sounds Cardiovascular Exam: Present: regular rate, normal rhythm GI/Abdominal exam: Present: soft. Absent: tenderness Extremities exam: Present: normal inspection. Absent: pedal edema, calf tenderness Neurological exam: Present: alert Psychiatric exam: Present: normal affect, normal mood Skin exam: Present: normal color Course Vital Signs 03/22/25 03/22/25 03/22/25 11:50 12:41 12:49 Temperature 97.9 F Pulse Rate 89 84 81 Respiratory 20 Rate Blood Pressure 133/93 O2 Sat by Pulse Oximetry 03/22/25 13:17 Temperature Pulse Rate 84 Respiratory 20 Rate Blood Pressure 120/80 O2 Sat by Pulse 99 Oximetry EKG Findings - EKG Results: EKG: interpreted by ERMD (Left axis. anterior Q waves.), sinus rhythm, normal ST/T Medical Decision Making - Medical Decision Making Was pt. sent in by a medical professional or institution (, PA, CYTOTECHNOLOGIST SUPERVISOR, urgent care, hospital, or usp...) When possible be specific @ - Did you speak to anyone other than the patient for history (EMS, parent, family, police, friend...)? What history was obtained from this source @ -No Did you review nursing and triage notes (agree or disagree)? Why? @ -I reviewed and agree with nursing and triage notes Were old charts reviewed (outside hosp., previous admission, EMS record, old EKG, old radiological studies, urgent care reports/EKG's, usp records)? Report findings @ -No old charts were reviewed Differential Diagnosis (chest pain, altered mental status, abdominal pain women, abdominal pain men, vaginal bleeding, weakness, fever, dyspnea, syncope, headache, dizziness, GI bleed, back pain, seizure, CVA, palpatations, mental health, musculoskeletal)? @ -Differential Dyspnea: Coronary syndrome, arrhythmia, tamponade, asthma, COPD, pulmonary embolism, pneumonia, pneumothorax, pulmonary effusion, anaphylaxis, diabetic ketoacidosis, flailed chest, pulmonary contusion, diaphragmatic rupture, anemia, neuromuscular, this is not meant to be an all-inclusive list. EKG interpreted by me (3pts min.). @ -As above X-rays interpreted by me (1pt min.). @ -Chest x-ray shows hyperinflation CT interpreted by me (1pt min.). @ -None done U/S interpreted by me (1pt. min.). @ -None done What testing was considered but not performed or refused? (CT, X-rays, U/S, labs)? Why? @ -None What meds were considered but not given or refused? Why? @ -None Did you discuss the management of the patient with other professionals (professionals i.e. , PA, CYTOTECHNOLOGIST SUPERVISOR, lab, RT, psych nurse, social work therapist, hardware press operator, teacher, chief executive officer, outpatient case manager)? Give summary @ -Case discussed with Dr. Baez who admit covering Dr. Rouse Was smoking cessation discussed for >3mins.? @ -No Was critical care preformed (if so, how long)? @ -No Were there social determinants of health that impacted care today? How? (Homelessness, low income, unemployed, alcoholism, drug addiction, transportation, low edu. Level, literacy, decrease access to med. care, longterm, rehab)? @ -No Was there de-escalation of care discussed even if they declined (Discuss DNR or withdrawal of care, Hospice)? DNR status @ -No What co-morbidities impacted this encounter? (DM, HTN, Smoking, COPD, CAD, Cancer, CVA, ARF, Chemo, Hep., AIDS, mental health diagnosis, sleep apnea, morbid obesity)? @ -COPD history Was patient admitted / discharged? Hospital course, mention meds given and route, prescriptions, significant lab abnormalities, going to OR and other pertinent info. @ -Patient presents with difficulty in breathing. Patient has wheezing and decreased air change consistent with symptoms and presentation and exam with COPD. Patient also to found to be hyponatremic and will need fluid resuscitation with sodium. Patient reevaluated and updated. Admission orders written. Undiagnosed new problem with uncertain prognosis? @ -No Drug Therapy requiring intensive monitoring for toxicity (Heparin, Nitro, Insulin, Cardizem)? @ -No Were any procedures done? @ -No Diagnosis/symptom? @ -COPD Acute, or Chronic, or Acute on Chronic? @ -Acute Uncomplicated (without systemic symptoms) or Complicated (systemic symptoms)? @ -Complicated with associated hyponatremia Side effects of treatment? @ -No Exacerbation, Progression, or Severe Exacerbation? @ -No Poses a threat to life or bodily function? How? (Chest pain, [place], CO, pneumonia, PE, COPD, DKA, ARF, appy, cholecystitis, CVA, Diverticulitis, Homicidal, Suicidal, threat to staff... and all critical care pts) @ -No - Lab Data Result diagrams: 03/22/25 13:06 03/22/25 13:06 Lab Results 03/22/25 03/22/25 03/22/25 Range/Units 12:35 13:06 13:06 WBC 9.10 (4.50-10.00) 10*3/uL RBC 4.13 (4.10-5.20) 10*6/uL Hgb 14.1 (12.0-15.0) g/dL Hct 41.9 (37.2-46.3) % MCV 101.5 H (80.0-97.0) fL MCH 34.1 H (27.0-32.0) pg MCHC 33.7 (32.0-37.0) g/dL Plt Count 298 (140-440) 10*3/uL MPV 8.8 L (9.5-12.2) fL Immature Gran % (Auto) 0.2 % Neutrophils % 77.8 % Lymphocytes % 13.7 % Monocytes % 8.0 % Eosinophils % 0.1 % Basophils % 0.2 % Immature Gran # 0.02 (0.00-0.04) 10*3/uL Neutrophils # 7.07 (1.80-7.70) 10*3/uL Lymphocytes # 1.25 (0.90-5.00) 10*3/uL Monocytes # 0.73 (0.20-1.00) 10*3/uL Eosinophils # 0.01 L (0.04-0.35) 10*3/uL Basophils # 0.02 (0.00-0.10) 10*3/uL PT 9.6 L (10.0-12.5) sec INR 0.8 (<1.2) APTT 21.8 L (22.0-30.0) sec Sodium (137-145) mmol/L Potassium (3.5-5.1) mmol/L Chloride (98-107) mmol/L Carbon Dioxide (22-30) mmol/L Anion Gap mmol/L BUN (7-17) mg/dL Creatinine (0.52-1.04) mg/dL Est GFR (CKD-EPI)AfAm (>60 ml/min/1.73 sqM) Est GFR (CKD-EPI)NonAf (>60 ml/min/1.73 sqM) Glucose (74-99) mg/dL Plasma Lactic Acid Jaguar (0.7-2.0) mmol/L Calcium (8.4-10.2) mg/dL Magnesium (1.6-2.3) mg/dL Total Bilirubin (0.2-1.3) mg/dL AST (14-36) U/L ALT (4-34) U/L Alkaline Phosphatase (38-126) U/L Total Protein (6.3-8.2) g/dL Albumin (3.5-5.0) g/dL Influenza Type A (PCR) Not Detected (Not Detectd) Influenza Type B (PCR) Not Detected (Not Detectd) RSV (PCR) Not Detected (Not Detectd) SARS-CoV-2 (PCR) Not Detected (Not Detectd) 03/22/25 03/22/25 Range/Units 13:06 13:06 WBC (4.50-10.00) 10*3/uL RBC (4.10-5.20) 10*6/uL Hgb (12.0-15.0) g/dL Hct (37.2-46.3) % MCV (80.0-97.0) fL MCH (27.0-32.0) pg MCHC (32.0-37.0) g/dL Plt Count (140-440) 10*3/uL MPV (9.5-12.2) fL Immature Gran % (Auto) % Neutrophils % % Lymphocytes % % Monocytes % % Eosinophils % % Basophils % % Immature Gran # (0.00-0.04) 10*3/uL Neutrophils # (1.80-7.70) 10*3/uL Lymphocytes # (0.90-5.00) 10*3/uL Monocytes # (0.20-1.00) 10*3/uL Eosinophils # (0.04-0.35) 10*3/uL Basophils # (0.00-0.10) 10*3/uL PT (10.0-12.5) sec INR (<1.2) APTT (22.0-30.0) sec Sodium 126 L (137-145) mmol/L Potassium 3.9 (3.5-5.1) mmol/L Chloride 74 L* (98-107) mmol/L Carbon Dioxide 48 H* (22-30) mmol/L Anion Gap 4 mmol/L BUN 29 H (7-17) mg/dL Creatinine 0.41 L (0.52-1.04) mg/dL Est GFR (CKD-EPI)AfAm >90 (>60 ml/min/1.73 sqM) Est GFR (CKD-EPI)NonAf >90 (>60 ml/min/1.73 sqM) Glucose 153 H (74-99) mg/dL Plasma Lactic Acid Jaguar 1.1 (0.7-2.0) mmol/L Calcium 9.1 (8.4-10.2) mg/dL Magnesium 1.9 (1.6-2.3) mg/dL Total Bilirubin 0.5 (0.2-1.3) mg/dL AST 39 H (14-36) U/L ALT 21 (4-34) U/L Alkaline Phosphatase 57 (38-126) U/L Total Protein 6.4 (6.3-8.2) g/dL Albumin 3.8 (3.5-5.0) g/dL Influenza Type A (PCR) (Not Detectd) Influenza Type B (PCR) (Not Detectd) RSV (PCR) (Not Detectd) SARS-CoV-2 (PCR) (Not Detectd) Disposition Clinical Impression: Acute exacerbation of chronic obstructive pulmonary disease Disposition: ADMITTED IP TO THIS HOSP Is patient prescribed a controlled substance at d/c from ED?: No Referrals: Dalton Franks MD [Primary Care Provider] - 1-2 days Time of Disposition: 14:58
[2025-03-22] MEDS: IPRATROPIUM-ALBUTEROL 3 ML NEB INHALATION STA (12:38)
[2025-03-22 13:14] LABS: Basophils # (A) 0.02 10*3/uL (0.00-0.10); Basophils % (A) 0.2 %; Eosinophils # (A) 0.01 10*3/uL (0.04-0.35); Eosinophils % (A) 0.1 %; HCT 41.9 % (37.2-46.3); HGB 14.1 g/dL (12.0-15.0); Lymphocytes # (A) 1.25 10*3/uL (0.90-5.00); Lymphocytes % (A) 13.7 %; MCH 34.1 pg (27.0-32.0); MCHC 33.7 g/dL (32.0-37.0); MCV 101.5 fL (80.0-97.0); Mean Platelet Volume 8.8 fL (9.5-12.2); Monocytes # (A) 0.73 10*3/uL (0.20-1.00); Neutrophils # (A) 7.07 10*3/uL (1.80-7.70); Neutrophils % (A) 77.8 %; Platelet Count 298 10*3/uL (140-440); RBC 4.13 10*6/uL (4.10-5.20); RDW 13.2 % (11.5-14.5)
[2025-03-22] MEDS: methylPREDNISolone SOD SUCCI 125 MG/2 ML VIAL IV STA (13:14)
[2025-03-22 13:21] LABS: Influenza A Not Detected (Not Detectd); Influenza B Not Detected (Not Detectd); RSV Not Detected (Not Detectd)
[2025-03-22 13:30] LABS: ALT 21 U/L (4-34); AST 39 U/L (14-36); African American GFR (CKD) >90 (>60 ml/min/1.73 sqM); Albumin 3.8 g/dL (3.5-5.0); Alkaline Phosphatase 57 U/L (38-126); Blood Urea Nitrogen 29 mg/dL (7-17); Calcium 9.1 mg/dL (8.4-10.2); Glucose 153 mg/dL (74-99); Magnesium 1.9 mg/dL (1.6-2.3); Non-African American GFR(CKD) >90 (>60 ml/min/1.73 sqM); Potassium 3.9 mmol/L (3.5-5.1); Sodium 126 mmol/L (137-145); Total Bilirubin 0.5 mg/dL (0.2-1.3); Total Protein 6.4 g/dL (6.3-8.2)
[2025-03-22 13:36] LABS: Anion Gap 4 mmol/L
[2025-03-22 13:47] LABS: Chloride 74 mmol/L (98-107)
[2025-03-22 13:51] LABS: Carbon Dioxide 48 mmol/L (22-30)
[2025-03-22 13:53] LABS: INR 0.8 (<1.2); Prothrombin Time 9.6 sec (10.0-12.5)
--- NOTE | 2025-03-22 13:55 | XR ---
EXAMINATION TYPE: XR chest 2V DATE OF EXAM: 03/22/2025 1:27 PM COMPARISON: 05/01/2020 CLINICAL INDICATION: Female, 80 years old with history of difficulty breathing, TECHNIQUE: XR chest 2V view(s) obtained. FINDINGS: The heart size is enlarged. The pulmonary vasculature is dominant. Mild diffuse increased lung markings are present bilaterally. Correlate for pulmonary edema. IMPRESSION: 1. Clinical correlation for developing congestive heart failure. Follow-up recommended. [facility], , 03/22/2025 1:53 PM
[2025-03-22 14:21] LABS: Partial Thromboplastin Time 21.8 sec (22.0-30.0)
[2025-03-22] MEDS ORDERED: IPRATROPIUM-ALBUTEROL 3 ML NEB INHALATION PRN (14:58)
[2025-03-22] MEDS ORDERED: NALOXONE 0.4 MG/ML 1 ML VIAL IVP PRN (14:58)
[2025-03-22] MEDS: SODIUM CHLORIDE 0.9% 1,000 ML IV STA (15:20)
[2025-03-22] MEDS: IPRATROPIUM-ALBUTEROL 3 ML NEB INHALATION SCH (15:52)
[2025-03-22 16:17] LABS: Appearance,Urine Clear (Clear); Bilirubin,Urine Negative (Negative); Blood,Urine Trace (Negative); Color,Urine Colorless; Glucose,Urine (UA) Negative (Negative); Ketones,Urine Negative (Negative); Leukocyte Esterase,Urine Negative (Negative); Mucus,Urine Rare /hpf; Nitrite,Urine Negative (Negative); PH, Urine 6.5 (5.0-8.0); Protein,Urine Trace (Negative); RBC,Urine 5 /hpf (0-5); Specific Gravity,Urine 1.013 (1.001-1.035); Squamous Epithelial Cell,Urine 1 /hpf (0-4); Urobilinogen,Urine <2.0 mg/dL (<2.0); WBC,Urine 2 /hpf (0-5)
[2025-03-22] MEDS: methylPREDNISolone SOD SUCCI 125 MG/2 ML VIAL IV SCH (17:25)
[2025-03-22] MEDS ORDERED: DEXTROSE 50% SYRINGE 50 ML IVP PRN ×2 (22:01)
[2025-03-22] MEDS ORDERED: PROCHLORPERAZINE 5 MG TAB PO PRN (22:09)
[2025-03-22] MEDS ORDERED: ACETAMINOPHEN TAB 325 MG TAB PO PRN (22:12)
--- NOTE | 2025-03-22 22:16 | P.HPIM ---
History of Present Illness This is a pleasant 80 years old female with past medical history of COPD and nicotine dependence Presents because of worsening dyspnea over the last 2 to 3 days. Associated with little cough and phlegm and chest pain with coughing She smokes about 10 to 15 cigarettes/day and she was counseled to quit and she agrees to the nicotine patch. She was using accessory muscles earlier requiring her family member at bedside and her oxygen saturation was dropping to 60s couple times while at home. Usually she uses 2 L of oxygen at home. Patient feels congested and generally weak. No specific GI/ symptoms. No headache dizziness weakness numbness. She reviewed marijuana but denies alcohol. She is afebrile and vital signs stable. Saturating well on 2 L oxygen CBC is unremarkable. Sodium 126. Chloride low at 74. Carbon dioxide is elevated at 48. Rest of CBC BMP LFT INR are unremarkable. Urinalysis with no significant abnormality. COVID influenza and RSV were unremarkable. proBNP 1740. EKG showing sinus rhythm at [address]-T changes. Chest x-ray showing COPD changes I reviewed chest x-ray by myself and agree. Patient currently placed on IV Solu-Medrol and Plavix. Review of Systems Review of systems CONSTITUTIONAL: No fever, no malaise, no fatigue. HEENT: No recent visual problems or hearing problems. Denied any sore throat. CARDIOVASCULAR: No orthopnea, PND, no palpitations, no syncope. PULMONARY: No chest wall tenderness, no hemoptysis. GASTROINTESTINAL: No diarrhea, no nausea, no vomiting, no abdominal pain. Normoactive bowel sounds. NEUROLOGICAL: No headaches, no weakness, no numbness. HEMATOLOGICAL: Denies any bleeding or petechiae. GENITOURINARY: Denies any burning micturition, frequency, or urgency. MUSCULOSKELETAL/RHEUMATOLOGICAL: Denies any joint pain, swelling, or any muscle pain. ENDOCRINE: Denies any polyuria or polydipsia. Past Medical History Past Medical History: COPD, GERD/Reflux, Hyperlipidemia, Hypertension, Osteoarthritis (OA), Pneumonia, Rheumatoid Arthritis (RA) Additional Past Medical History / Comment(s): Frequent nausea, coughs when eating and is not able to eat as much as she needs, CANNOT PUT ON WEIGHT. 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 Hx of Sjorgren's. Skipping heart beats per pt. SOB with exertion. Deep severe itching to axilla, upper chest and right back. History of Any Multi-Drug Resistant Organisms: None Reported Past Surgical History: Cholecystectomy, Hysterectomy, Joint Replacement, Orthopedic Surgery, Tonsillectomy Additional Past Surgical History / Comment(s): Bilateral carpal tunnel release, COLONOSCOPY/EGD, PARTIAL RIGHT KNEE REPLACEMENT. Past Anesthesia/Blood Transfusion Reactions: No Reported Reaction Past Psychological History: Anxiety, Depression Smoking Status: Current every day smoker Past Alcohol Use History: None Reported Additional Past Alcohol Use History / Comment(s): Working on quitting, has been smoking since 16 yrs old. Currently down to 6 cigarettes per day. Past Drug Use History: Marijuana Additional Drug Use History / Comment(s): Occasional marijuana use. Aware no use 24 hrs prior to procedure. - Past Family History Mother Family Medical History: Diabetes Mellitus Medications and Allergies Home Medications Medication Instructions Recorded Confirmed Type Clopidogrel [Plavix] 75 mg PO DAILY 03/26/22 03/22/25 History Alendronate Sodium [Fosamax] 70 mg PO MO 04/30/24 03/22/25 History ALPRAZolam [Xanax] 0.5 mg PO DAILY PRN 03/22/25 03/22/25 History ALPRAZolam [Xanax] 1 mg PO HS 03/22/25 03/22/25 History Lipase/Protease/Amylase [Creon Dr 1 cap PO TID 03/22/25 03/22/25 History 3,000 Unit Capsule] Losartan-Hctz 50-12.5 mg [Hyzaar 1 tab PO DAILY 03/22/25 03/22/25 History 50-12.5] Pantoprazole [Protonix] 40 mg PO BID 03/22/25 03/22/25 History Pioglitazone [Actos] 15 mg PO DAILY 03/22/25 03/22/25 History Prochlorperazine [Compazine] 5 mg PO TID PRN 03/22/25 03/22/25 History amLODIPine [Norvasc] 5 mg PO DAILY 03/22/25 03/22/25 History busPIRone HCl [Buspar] 10 mg PO TID 03/22/25 03/22/25 History Allergies Allergy/AdvReac Type Severity Reaction Status Date / Time hydroxychloroquine sulfate Allergy Severe Anaphylaxis Verified 03/22/25 15:20 [From Plaquenil] Physical Exam Vitals: Vital Signs Temp Pulse Pulse Resp BP BP Pulse Ox 03/22/25 21:30 98.2 F 84 18 169/75 96 03/22/25 20:42 98.2 F 68 20 139/84 94 L 03/22/25 20:26 85 03/22/25 20:18 83 03/22/25 19:43 81 144/93 03/22/25 18:32 98.1 F 75 20 152/78 97 03/22/25 16:00 80 18 150/78 98 03/22/25 15:59 82 03/22/25 15:52 75 03/22/25 15:00 85 18 143/76 99 03/22/25 13:17 84 20 120/80 99 03/22/25 12:49 81 03/22/25 12:41 84 03/22/25 11:50 97.9 F 89 20 133/93 Intake and Output 03/22/25 03/22/25 03/22/25 06:59 14:59 22:59 Other: Voiding Method Bedside Commode Weight 38.102 kg 38.102 kg GENERAL: The patient is alert and oriented x3, not in any acute distress. Well developed, well nourished. HEENT: Pupils are round and equally reacting to light. EOMI. No scleral icterus. No conjunctival pallor. Normocephalic, atraumatic. No pharyngeal erythema. No thyromegaly. CARDIOVASCULAR: S1 and S2 present. No murmurs, rubs, or gallops. -PULMONARY: Chest is clear to auscultation, bilateral expiratory wheezing , no crackles. ABDOMEN: Soft, nontender, nondistended, normoactive bowel sounds. No palpable organomegaly. MUSCULOSKELETAL: No joint swelling or deformity. EXTREMITIES: No cyanosis, clubbing, or pedal edema. NEUROLOGICAL: Gross neurological examination did not reveal any focal deficits. SKIN: No rashes. no petechiae. Results CBC & Chem 7: 03/22/25 13:06 03/22/25 13:06 Labs: Abnormal Lab Results - Last 24 Hours (Table) 03/22/25 03/22/25 03/22/25 Range/Units 13:06 13:06 13:06 MCV 101.5 H (80.0-97.0) fL MCH 34.1 H (27.0-32.0) pg MPV 8.8 L (9.5-12.2) fL Eosinophils # 0.01 L (0.04-0.35) 10*3/uL PT 9.6 L (10.0-12.5) sec APTT 21.8 L (22.0-30.0) sec Sodium 126 L (137-145) mmol/L Chloride 74 L* (98-107) mmol/L Carbon Dioxide 48 H* (22-30) mmol/L BUN 29 H (7-17) mg/dL Creatinine 0.41 L (0.52-1.04) mg/dL Glucose 153 H (74-99) mg/dL AST 39 H (14-36) U/L Urine Protein (Negative) Urine Blood (Negative) Urine Mucus (None) /hpf Ur Random Sodium (40-220) mmol/L 03/22/25 03/22/25 Range/Units 15:51 15:51 MCV (80.0-97.0) fL MCH (27.0-32.0) pg MPV (9.5-12.2) fL Eosinophils # (0.04-0.35) 10*3/uL PT (10.0-12.5) sec APTT (22.0-30.0) sec Sodium (137-145) mmol/L Chloride (98-107) mmol/L Carbon Dioxide (22-30) mmol/L BUN (7-17) mg/dL Creatinine (0.52-1.04) mg/dL Glucose (74-99) mg/dL AST (14-36) U/L Urine Protein Trace H (Negative) Urine Blood Trace H (Negative) Urine Mucus Rare H (None) /hpf Ur Random Sodium <20 L (40-220) mmol/L Thrombosis Risk Factor Assmnt - Choose All That Apply Any of the Below Risk Factors Present?: Yes Each Factor Represents 1 point: Abnormal pulmonary function (COPD) Other Risk Factors: Yes Each Risk Factor Represents 3 Points: Age 75 years or older Other congenital or acquired thrombophilia - If yes, enter type in comment: No Thrombosis Risk Factor Assessment Total Risk Factor Score: 4 Thrombosis Risk Factor Assessment Level: Moderate Risk Assessment and Plan Assessment: Acute COPD exacerbation Acute hypoxic on chronic hypoxic respiratory failure Hyponatremia Severe: Protein malnutrition Substance abuse with marijuana Plan: Continue with IV Solu-Medrol Continue with inhaler bronchodilator Oxygen therapy Pulmonary team consult Counseled to quit smoking and nicotine patch ordered Labs and medication were reviewed.. Continue same treatment. Continue with symptomatic treatment. Resume home medication. Monitor labs and vitals. DVT and GI prophylaxis. Further recommendations as per clinical course of the patient DVT prophylaxis: Subcutaneous h Lovenox GI Prophylaxis: Pepcid Prognosis is guarded
[2025-03-22] MEDS: NICOTINE 21MG/24HR PATCH TRANSDERM SCH (22:44)
[2025-03-22] MEDS: busPIRone HCl 10 MG TAB PO SCH (22:44)
[2025-03-23] MEDS: ALPRAZolam 0.5 MG TAB PO PRN (01:21)
[2025-03-23 06:10] LABS: Glucose,Whole Blood 179 mg/dL (70-110)
[2025-03-23] MEDS: INSULIN LISPRO (HumaLOG) 100 UNIT/ML 10 mL VL SQ SCH (06:34)
[2025-03-23] MEDS: LIPASE 5,000/PROTEASE 17,000/AMYLASE 24,000 PO SCH (06:34)
--- NOTE | 2025-03-23 07:18 | P.CNPUL ---
History of Present Illness Consult date: 03/23/25 Requesting physician: Jesu E Sheet Reason for consult: COPD Chief complaint: Shortness of breath History of present illness: Patient is a 80-year-old female with past medical history significant for hypertension, hyperlipidemia, diabetes, CAD, GERD, anxiety, current tobacco smoker, and COPD. Her PCP is Dr. Franks. Presented emergency department yesterday with a chief complaint of shortness of breath. Noted to be wheezing with limited air movement in the ED. Placed on supplemental oxygen. Given DuoNeb treatment and loaded with IV Solu-Medrol. COPD was felt to be active. Chest x-ray showing enlarged heart, prominent pulmonary vasculature with diffuse mild increased lung markings bilaterally. NT proBNP only 1740. CBC: WBC count 9.1, hemoglobin 14.1, platelets 298. CMP with sodium 126, potassium 3.9, chloride 74, serum bicarb 48, BUN 29, creatinine 0.41, glucose 153. Viral 4 P martha negative for influenza A/B, RSV, COVID. Patient currently being seen on the general medical floor. She is resting comfortably on 2 L/min nasal cannula. States she wears 2 L of supplemental oxygen 24/ while at home. She does have history of COPD and uses a Trelegy maintenance inhaler along with albuterol nebs and albuterol rescue inhaler. She still smokes cigarettes, 1 pack/day. States over the last week or so she has developed increased work of breathing with associated chest tightness and congestion. No significant increase of chronic cough. Occasional yellow sputum production. No reported fevers. Denies any notable sick contacts. Denies any chest pain, heart palpitations, syncopal events, lower extremity edema. Current vital signs: Temperature 97.7 F, heart rate 90 bpm, blood pressure 164/79 mmHg, nontachypneic, SpO2 recorded 94% on 2 L/min nasal cannula. Review of Systems Constitutional: Reports fatigue, Denies chills, Denies fever, Denies poor appetite, Denies sweats, Denies weight gain, Denies weight loss Ears, nose, mouth and throat: Denies headache, Denies nasal congestion, Denies nasal discharge, Denies post-nasal drip, Denies sinus pain, Denies sinus pressure, Denies sore throat Cardiovascular: Denies chest pain, Denies leg edema, Denies lightheadedness, Denies orthopnea, Denies palpitations, Denies paroxysmal nocturnal dyspnea, Denies syncope Respiratory: Reports as per HPI Gastrointestinal: Denies abdominal pain, Denies change in bowel habits, Denies diarrhea, Denies nausea, Denies vomiting Genitourinary: Denies dysuria, Denies flank pain, Denies hematuria Musculoskeletal: Denies limitation of motion Integumentary: Denies rash Neurological: Denies headaches, Denies seizures, Denies syncope Psychiatric: Reports anxiety, Denies depression Past Medical History Past Medical History: COPD, GERD/Reflux, Hyperlipidemia, Hypertension, Osteoa rthritis (OA), Pneumonia, Rheumatoid Arthritis (RA) Additional Past Medical History / Comment(s): Frequent nausea, coughs when eating and is not able to eat as much as she needs, CANNOT PUT ON WEIGHT. 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 Hx of Sjorgren's. Skipping heart beats per pt. SOB with exertion. Deep severe itching to axilla, upper chest and right back. History of Any Multi-Drug Resistant Organisms: None Reported Past Surgical History: Cholecystectomy, Hysterectomy, Joint Replacement, Orthopedic Surgery, Tonsillectomy Additional Past Surgical History / Comment(s): Bilateral carpal tunnel release, COLONOSCOPY/EGD, PARTIAL RIGHT KNEE REPLACEMENT. Past Anesthesia/Blood Transfusion Reactions: No Reported Reaction Past Psychological History: Anxiety, Depression Smoking Status: Current every day smoker Past Alcohol Use History: None Reported Additional Past Alcohol Use History / Comment(s): Working on quitting, has been smoking since 16 yrs old. Currently down to 6 cigarettes per day. Past Drug Use History: Marijuana Additional Drug Use History / Comment(s): Occasional marijuana use. Aware no use 24 hrs prior to procedure. - Past Family History Mother Family Medical History: Diabetes Mellitus Medications and Allergies Home Medications Medication Instructions Recorded Confirmed Type Clopidogrel [Plavix] 75 mg PO DAILY 03/26/22 03/22/25 History Alendronate Sodium [Fosamax] 70 mg PO MO 04/30/24 03/22/25 History ALPRAZolam [Xanax] 0.5 mg PO DAILY PRN 03/22/25 03/22/25 History ALPRAZolam [Xanax] 1 mg PO HS 03/22/25 03/22/25 History Lipase/Protease/Amylase [Creon Dr 1 cap PO TID 03/22/25 03/22/25 History 3,000 Unit Capsule] Losartan-Hctz 50-12.5 mg [Hyzaar 1 tab PO DAILY 03/22/25 03/22/25 History 50-12.5] Pantoprazole [Protonix] 40 mg PO BID 03/22/25 03/22/25 History Pioglitazone [Actos] 15 mg PO DAILY 03/22/25 03/22/25 History Prochlorperazine [Compazine] 5 mg PO TID PRN 03/22/25 03/22/25 History amLODIPine [Norvasc] 5 mg PO DAILY 03/22/25 03/22/25 History busPIRone HCl [Buspar] 10 mg PO TID 03/22/25 03/22/25 History Allergies Allergy/AdvReac Type Severity Reaction Status Date / Time hydroxychloroquine sulfate Allergy Severe Anaphylaxis Verified 03/22/25 15:20 [From Plaquenil] Physical Exam Vitals: Vital Signs Temp Pulse Pulse Resp BP BP Pulse Ox 03/23/25 01:51 97.7 F 50 L 18 164/79 94 L 03/22/25 22:20 92 137/79 03/22/25 21:30 98.2 F 84 18 169/75 96 03/22/25 20:42 98.2 F 68 20 139/84 94 L 03/22/25 20:26 85 03/22/25 20:18 83 03/22/25 19:43 81 144/93 03/22/25 18:32 98.1 F 75 20 152/78 97 03/22/25 16:00 80 18 150/78 98 03/22/25 15:59 82 03/22/25 15:52 75 03/22/25 15:00 85 18 143/76 99 03/22/25 13:17 84 20 120/80 99 03/22/25 12:49 81 03/22/25 12:41 84 03/22/25 11:50 97.9 F 89 20 133/93 Intake and Output 03/22/25 03/22/25 03/23/25 14:59 22:59 06:59 Other: Voiding Method Bedside Commode Weight 38.102 kg 38.102 kg GENERAL EXAM: Alert, 72-year-old female, frail, comfortable in no apparent distress. HEAD: Normocephalic and atraumatic EYES: Normal reaction of pupils, equal size. NOSE: Clear with pink turbinates. THROAT: No erythema or exudates. NECK: No masses, no JVD. CHEST: No chest wall deformity. LUNGS: Equal air entry with expiratory wheezing heard bilaterally throughout. On 2 L/min nasal cannula. No conversational dyspnea or accessory muscle use while at rest CVS: S1 and S2 normal with no audible murmur, regular rhythm. No extra heart sounds ABDOMEN: No hepatosplenomegaly, active bowel sounds, no guarding or rigidity. SPINE: No scoliosis or deformity SKIN: No rashes CENTRAL NERVOUS SYSTEM: No focal deficits, tone is normal in all 4 extremities. EXTREMITIES: There is no peripheral edema, clubbing, or cyanosis. Peripheral pulses are intact. Results - Laboratory Findings CBC and BMP: 03/22/25 13:06 03/23/25 03:22 PT/INR, D-dimer PT 9.6 sec (10.0-12.5) L 03/22/25 13:06 INR 0.8 (<1.2) 03/22/25 13:06 Abnormal lab findings: Abnormal Labs 03/22/25 03/22/25 03/22/25 13:06 13:06 13:06 MCV 101.5 H MCH 34.1 H MPV 8.8 L Eosinophils # 0.01 L PT 9.6 L APTT 21.8 L Sodium 126 L Chloride 74 L* Carbon Dioxide 48 H* BUN 29 H Creatinine 0.41 L Glucose 153 H AST 39 H Urine Protein Urine Blood Urine Mucus Ur Random Sodium 03/22/25 03/22/25 15:51 15:51 MCV MCH MPV Eosinophils # PT APTT Sodium Chloride Carbon Dioxide BUN Creatinine Glucose AST Urine Protein Trace H Urine Blood Trace H Urine Mucus Rare H Ur Random Sodium <20 L - Diagnostic Findings Chest x-ray: image reviewed Assessment and Plan Assessment: Acute COPD exacerbation with secondary shortness of breath Acute hypoxemic respiratory failure, secondary to above, currently on 2 L of oxygen by nasal cannula Chronic hypercarbia with secondary chronic metabolic alkalosis Hyponatremia, hypovolemic, improving Hypertension History of hyperlipidemia Diabetes mellitus type 2 History of coronary artery disease, heart catheterization done May 2024 showing chronic total occlusion of mid RCA with collaterals. Medically managed. Gastroesophageal reflux disease Current ongoing tobacco dependence Plan: Patient's medications, labs, chest x-ray reviewed No signs of CO2 narcosis Continue supplemental oxygen, currently on 2 L per nasal cannula Continue combination of DuoNebs, formoterol inhalations, budesonide and inhalations, IV Solu-Medrol Smoking cessation counseling performed Nicotine patch previously offered Will continue to follow I have personally seen and examined the patient, performed the documentation and the assessment and plan as written. Number of minutes spent on the visit:20 03/23/2025, the patient is being seen in joint evaluation along with nurse practitioner. This evaluation was done and 31 minutes. Please refer to the above-mentioned details. The patient is being hospitalized for an acute CF exacerbation. She is known to have chronic COPD. No signs of any CO2 narcosis and the patient is currently on 2 L of oxygen by nasal cannula. The patient was placed on a combination of DuoNeb updrafts, performance of Pulmicort nebulized treatments and IV Solu-Medrol. She is a chronic smoker. Chest x-ray was reviewed and it shows COPD with hyperinflation there is no evidence of any pneumonia. Blood work shows chronic metabolic alkalosis consistent with chronic hypercapnic respiratory failure. The patient was having some hyponatremia at time of admission which is improving. proBNP level is 1740. Viral screen is negative. White cell count not elevated. Will continue same treatment for now. Lovenox for DVT prophylaxis. Home medication resumed. Time with Patient: Greater than 30
[2025-03-23] MEDS: FORMOTEROL FUMARATE 20 MCG/2 ML NEBU INHALATION SCH (08:09)
[2025-03-23] MEDS: BUDESONIDE 1 MG/2 ML NEBU INHALATION SCH (08:09)
[2025-03-23] MEDS ORDERED: busPIRone HCl 10 MG TAB PO SCH (09:00)
[2025-03-23 09:20] LABS: Blood Urea Nitrogen 21.4 mg/dL (9.0-27.0); Calcium 8.9 mg/dL (8.7-10.3); Carbon Dioxide 41.9 mmol/L (21.6-31.8); Chloride 81 mmol/L (96-109); Glucose 200 mg/dL (70-110); Potassium 4.2 mmol/L (3.5-5.5); Sodium 130 mmol/L (135-145)
[2025-03-23] MEDS: PANTOPRAZOLE 40 MG TABLET PO SCH (09:53)
[2025-03-23] MEDS: amLODIPine 5 MG TAB PO SCH (09:53)
[2025-03-23] MEDS: ENOXAPARIN 30 MG/0.3 ML SYRINGE SQ SCH (09:53)
[2025-03-23] MEDS: CLOPIDOGREL 75 MG TAB PO SCH (09:53)
[2025-03-23] MEDS: LOSARTAN-HCTZ 50-12.5 MG 1 EACH TAB PO SCH (10:00)
[2025-03-23] MEDS: PIOGLITAZONE 15 MG TAB PO SCH (10:00)
--- NOTE | 2025-03-23 10:58 | P.PN ---
Subjective This is a pleasant 80 years old female with past medical history of COPD and nicotine dependence Presents because of worsening dyspnea over the last 2 to 3 days. Associated with little cough and phlegm and chest pain with coughing She smokes about 10 to 15 cigarettes/day and she was counseled to quit and she agrees to the nicotine patch. She was using accessory muscles earlier requiring her family member at bedside and her oxygen saturation was dropping to 60s couple times while at home. Usually she uses 2 L of oxygen at home. Patient feels congested and generally weak. No specific GI/ symptoms. No headache dizziness weakness numbness. She reviewed marijuana but denies alcohol. She is afebrile and vital signs stable. Saturating well on 2 L oxygen CBC is unremarkable. Sodium 126. Chloride low at 74. Carbon dioxide is elevated at 48. Rest of CBC BMP LFT INR are unremarkable. Urinalysis with no significant abnormality. COVID influenza and RSV were unremarkable. proBNP 1740. EKG showing sinus rhythm at [address]-T changes. Chest x-ray showing COPD changes I reviewed chest x-ray by myself and agree. Patient currently placed on IV Solu-Medrol and Plavix. 03/23 Patient still feels short of breath and wheezing She does not feel ready for discharge yet. She remains on the same level of oxygen as of yesterday Sodium slightly improved after she received IV fluid yesterday therefore we are going to put her on normal saline 40 mL/h x 24 hours. Continue with IV Solu-Medrol and bronchodilator Objective - Vital Signs Vital signs: Vital Signs Temp 98.2 F 03/23/25 07:09 Pulse 84 03/23/25 08:36 Resp 16 03/23/25 07:09 BP 161/73 03/23/25 07:09 Pulse Ox 95 03/23/25 08:09 FiO2 Intake & Output 03/22/25 03/23/25 03/23/25 18:59 06:59 18:59 Weight 38.102 kg 38.102 kg Other: Voiding Method Bedside Commode # Voids 5 - Exam GENERAL: The patient is alert and oriented x3, not in any acute distress. Well developed, well nourished. HEENT: Pupils are round and equally reacting to light. EOMI. No scleral icterus. No conjunctival pallor. Normocephalic, atraumatic. No pharyngeal erythema. No thyromegaly. CARDIOVASCULAR: S1 and S2 present. No murmurs, rubs, or gallops. PULMONARY: Chest is clear to auscultation, n expiratory wheezing , no crackles. ABDOMEN: Soft, nontender, nondistended, normoactive bowel sounds. No palpable organomegaly. MUSCULOSKELETAL: No joint swelling or deformity. EXTREMITIES: No cyanosis, clubbing, or pedal edema. NEUROLOGICAL: Gross neurological examination did not reveal any focal deficits. SKIN: No rashes. no petechiae. - Labs CBC & Chem 7: 03/22/25 13:06 03/23/25 03:22 Labs: Abnormal Lab Results - Last 24 Hours (Table) 03/22/25 03/22/25 03/22/25 Range/Units 13:06 13:06 13:06 MCV 101.5 H (80.0-97.0) fL MCH 34.1 H (27.0-32.0) pg MPV 8.8 L (9.5-12.2) fL Eosinophils # 0.01 L (0.04-0.35) 10*3/uL PT 9.6 L (10.0-12.5) sec APTT 21.8 L (22.0-30.0) sec Sodium 126 L (137-145) mmol/L Chloride 74 L* (98-107) mmol/L Carbon Dioxide 48 H* (22-30) mmol/L BUN 29 H (7-17) mg/dL Creatinine 0.41 L (0.52-1.04) mg/dL BUN/Creatinine Ratio (12.00-20.00) Ratio Glucose 153 H (74-99) mg/dL POC Glucose (mg/dL) (70-110) mg/dL Hemoglobin A1c (<=6.0) % AST 39 H (14-36) U/L Urine Protein (Negative) Urine Blood (Negative) Urine Mucus (None) /hpf Ur Random Sodium (40-220) mmol/L 03/22/25 03/22/25 03/23/25 Range/Units 15:51 15:51 03:22 MCV (80.0-97.0) fL MCH (27.0-32.0) pg MPV (9.5-12.2) fL Eosinophils # (0.04-0.35) 10*3/uL PT (10.0-12.5) sec APTT (22.0-30.0) sec Sodium (137-145) mmol/L Chloride (98-107) mmol/L Carbon Dioxide (22-30) mmol/L BUN (7-17) mg/dL Creatinine (0.52-1.04) mg/dL BUN/Creatinine Ratio (12.00-20.00) Ratio Glucose (74-99) mg/dL POC Glucose (mg/dL) (70-110) mg/dL Hemoglobin A1c 6.7 H (<=6.0) % AST (14-36) U/L Urine Protein Trace H (Negative) Urine Blood Trace H (Negative) Urine Mucus Rare H (None) /hpf Ur Random Sodium <20 L (40-220) mmol/L 03/23/25 03/23/25 Range/Units 03:22 06:07 MCV (80.0-97.0) fL MCH (27.0-32.0) pg MPV (9.5-12.2) fL Eosinophils # (0.04-0.35) 10*3/uL PT (10.0-12.5) sec APTT (22.0-30.0) sec Sodium 130 L (137-145) mmol/L Chloride 81 L (98-107) mmol/L Carbon Dioxide 41.9 A* (22-30) mmol/L BUN (7-17) mg/dL Creatinine 0.4 L (0.52-1.04) mg/dL BUN/Creatinine Ratio 53.50 H (12.00-20.00) Ratio Glucose 200 H (74-99) mg/dL POC Glucose (mg/dL) 179 H (70-110) mg/dL Hemoglobin A1c (<=6.0) % AST (14-36) U/L Urine Protein (Negative) Urine Blood (Negative) Urine Mucus (None) /hpf Ur Random Sodium (40-220) mmol/L Assessment and Plan Assessment: Acute COPD exacerbation Acute hypoxic on chronic hypoxic respiratory failure Hyponatremia Severe: Protein malnutrition Substance abuse with marijuana Plan: Continue with IV Solu-Medrol Continue with inhaler bronchodilator Oxygen therapy Pulmonary team consult Counseled to quit smoking and nicotine patch ordered Labs and medication were reviewed.. Continue same treatment. Continue with symptomatic treatment. Resume home medication. Monitor labs and vitals. DVT and GI prophylaxis. Further recommendations as per clinical course of the patient DVT prophylaxis: Subcutaneous h Lovenox GI Prophylaxis: Pepcid Prognosis is guarded
[2025-03-23 11:27] LABS: Glucose,Whole Blood 278 mg/dL (70-110)
[2025-03-23] MEDS: SODIUM CHLORIDE 0.9% 1,000 ML IV SCH (12:11)
[2025-03-23 15:20] VITALS: BMI 15.3
[2025-03-23 16:19] LABS: Glucose,Whole Blood 107 mg/dL (70-110)
[2025-03-23] MEDS: ALPRAZolam 1 MG TAB PO SCH (21:13)
[2025-03-23 21:38] LABS: Glucose,Whole Blood 229 mg/dL (70-110)
[2025-03-24 06:11] LABS: Glucose,Whole Blood 174 mg/dL (70-110)
[2025-03-24] MEDS: ALPRAZolam 0.5 MG TAB PO SCH (09:13)
[2025-03-24] MEDS: MULTIVITAMINS, THERA 1 EACH TAB PO SCH (09:17)
--- NOTE | 2025-03-24 13:12 | P.PN ---
Subjective This is a pleasant 80 years old female with past medical history of COPD and nicotine dependence Presents because of worsening dyspnea over the last 2 to 3 days. Associated with little cough and phlegm and chest pain with coughing She smokes about 10 to 15 cigarettes/day and she was counseled to quit and she agrees to the nicotine patch. She was using accessory muscles earlier requiring her family member at bedside and her oxygen saturation was dropping to 60s couple times while at home. Usually she uses 2 L of oxygen at home. Patient feels congested and generally weak. No specific GI/ symptoms. No headache dizziness weakness numbness. She reviewed marijuana but denies alcohol. She is afebrile and vital signs stable. Saturating well on 2 L oxygen CBC is unremarkable. Sodium 126. Chloride low at 74. Carbon dioxide is elevated at 48. Rest of CBC BMP LFT INR are unremarkable. Urinalysis with no significant abnormality. COVID influenza and RSV were unremarkable. proBNP 1740. EKG showing sinus rhythm at [address]-T changes. Chest x-ray showing COPD changes I reviewed chest x-ray by myself and agree. Patient currently placed on IV Solu-Medrol and Plavix. 03/23 Patient still feels short of breath and wheezing She does not feel ready for discharge yet. She remains on the same level of oxygen as of yesterday Sodium slightly improved after she received IV fluid yesterday therefore we are going to put her on normal saline 40 mL/h x 24 hours. Continue with IV Solu-Medrol and bronchodilator 03/24 Still feels short of breath 2 L oxygen via nasal cannula She is still wheezing She reports improvement but she does not feel ready to discharge She is walking with exertional dyspnea no chest pain She is not getting IV fluids. Check sodium level in the Objective - Vital Signs Vital signs: Vital Signs Temp 98.4 F 03/24/25 07:36 Pulse 88 03/24/25 11:48 Resp 16 03/24/25 08:00 BP 129/68 03/24/25 07:36 Pulse Ox 99 03/24/25 07:36 FiO2 Intake & Output 03/23/25 03/24/25 03/24/25 18:59 06:59 18:59 Weight 38.102 kg Other: # Voids 1 1 - Exam GENERAL: The patient is alert and oriented x3, not in any acute distress. Well developed, well nourished. HEENT: Pupils are round and equally reacting to light. EOMI. No scleral icterus. No conjunctival pallor. Normocephalic, atraumatic. No pharyngeal erythema. No thyromegaly. CARDIOVASCULAR: S1 and S2 present. No murmurs, rubs, or gallops. PULMONARY: Chest is clear to auscultation, n expiratory wheezing , no crackles. ABDOMEN: Soft, nontender, nondistended, normoactive bowel sounds. No palpable organomegaly. MUSCULOSKELETAL: No joint swelling or deformity. EXTREMITIES: No cyanosis, clubbing, or pedal edema. NEUROLOGICAL: Gross neurological examination did not reveal any focal deficits. SKIN: No rashes. no petechiae. - Labs CBC & Chem 7: 03/22/25 13:06 03/23/25 03:22 Labs: Abnormal Lab Results - Last 24 Hours (Table) 03/23/25 03/24/25 Range/Units 21:36 06:08 POC Glucose (mg/dL) 229 H 174 H (70-110) mg/dL Assessment and Plan Assessment: Acute COPD exacerbation Acute hypoxic on chronic hypoxic respiratory failure Hyponatremia Severe: Protein malnutrition Substance abuse with marijuana Plan: Continue with IV Solu-Medrol Continue with inhaler bronchodilator Oxygen therapy Pulmonary team consult Counseled to quit smoking and nicotine patch ordered Labs and medication were reviewed.. Continue same treatment. Continue with symptomatic treatment. Resume home medication. Monitor labs and vitals. DVT and GI prophylaxis. Further recommendations as per clinical course of the patient DVT prophylaxis: Subcutaneous h Lovenox GI Prophylaxis: Pepcid Prognosis is guarded
[2025-03-24 16:37] LABS: Glucose,Whole Blood 149 mg/dL (70-110)
[2025-03-24 21:19] LABS: Glucose,Whole Blood 252 mg/dL (70-110)
--- NOTE | 2025-03-24 22:42 | P.PN ---
Subjective Progress Note Date: 03/24/25 Patient is a 80-year-old female with past medical history significant for hypertension, hyperlipidemia, diabetes, CAD, GERD, anxiety, current tobacco smoker, and COPD. Her PCP is Dr. Franks. Presented emergency department yesterday with a chief complaint of shortness of breath. Noted to be wheezing with limited air movement in the ED. Placed on supplemental oxygen. Given DuoNeb treatment and loaded with IV Solu-Medrol. COPD was felt to be active. Chest x-ray showing enlarged heart, prominent pulmonary vasculature with diffuse mild increased lung markings bilaterally. NT proBNP only 1740. CBC: WBC count 9.1, hemoglobin 14.1, platelets 298. CMP with sodium 126, potassium 3.9, chloride 74, serum bicarb 48, BUN 29, creatinine 0.41, glucose 153. Viral 4 Plex negative for influenza A/B, RSV, COVID. Patient currently being seen on the general medical floor. She is resting comfortably on 2 L/min nasal cannula. States she wears 2 L of supplemental oxygen / while at home. She does have history of COPD and uses a Trelegy maintenance inhaler along with albuterol nebs and albuterol rescue inhaler. She still smokes cigarettes, 1 pack/day. States over the last week or so she has developed increased work of breathing with associated chest tightness and congestion. No significant increase of chronic cough. Occasional yellow sputum production. No reported fevers. Denies any notable sick contacts. Denies any chest pain, heart palpitations, syncopal events, lower extremity edema. Current vital signs: Temperature 97.7 F, heart rate 90 bpm, blood pressure 164/79 mmHg, nontachypneic, SpO2 recorded 94% on 2 L/min nasal cannula. Mom 03/24/2025, the patient is being seen for a follow-up. The patient is still bronchospastic and wheezing she continues to have cough and congestion. Slightly improved compared to yesterday. Nevertheless, her recovery is not complete. No new labs are available from today. She remains on DuoNeb updrafts. She is also on Perforomist and Pulmicort nebulized treatments twice a day and albuterol Medrol 6 mg every 6 hours. She is on BuSpar 10 mg 3 times daily in addition to Xanax on a as needed basis for anxiety. Oxygenation remained stable and the patient remains on 2 L of oxygen by nasal cannula with a pulse ox of 94%. Objective - Vital Signs Vital signs: Vital Signs Temp 98.4 F 03/24/25 07:36 Pulse 88 03/24/25 11:48 Resp 16 03/24/25 08:00 BP 129/68 03/24/25 07:36 Pulse Ox 99 03/24/25 07:36 FiO2 Intake & Output 03/23/25 03/24/25 03/24/25 18:59 06:59 18:59 Weight 38.102 kg Other: # Voids 1 1 - Exam GENERAL EXAM: Alert, 72-year-old female, frail, comfortable in no apparent distress. HEAD: Normocephalic and atraumatic EYES: Normal reaction of pupils, equal size. NOSE: Clear with pink turbinates. THROAT: No erythema or exudates. NECK: No masses, no JVD. CHEST: No chest wall deformity. LUNGS: Equal air entry with expiratory wheezing heard bilaterally throughout. On 2 L/min nasal cannula. No conversational dyspnea or accessory muscle use while at rest CVS: S1 and S2 normal with no audible murmur, regular rhythm. No extra heart sounds ABDOMEN: No hepatosplenomegaly, active bowel sounds, no guarding or rigidity. SPINE: No scoliosis or deformity SKIN: No rashes CENTRAL NERVOUS SYSTEM: No focal deficits, tone is normal in all 4 extremities. EXTREMITIES: There is no peripheral edema, clubbing, or cyanosis. Peripheral pulses are intact. - Labs CBC & Chem 7: 03/22/25 13:06 03/23/25 03:22 Labs: Abnormal Lab Results - Last 24 Hours (Table) 03/23/25 03/24/25 Range/Units 21:36 06:08 POC Glucose (mg/dL) 229 H 174 H (70-110) mg/dL Assessment and Plan Assessment: Acute COPD exacerbation with secondary shortness of breath Acute hypoxemic respiratory failure, secondary to above, currently on 2 L of oxygen by nasal cannula Chronic hypercarbia with secondary chronic metabolic alkalosis Hyponatremia, hypovolemic, improving Hypertension History of hyperlipidemia Diabetes mellitus type 2 History of coronary artery disease, heart catheterization done May 2024 showing chronic total occlusion of mid RCA with collaterals. Medically managed. 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 Less bronchospastic and wheezy compared to yesterday. Not fully recovered. Clinically however the patient is improving. Will continue same management for now. Remains on oxygen 2 L/min nasal cannula No signs of CO2 narcosis Continue combination of DuoNebs, formoterol inhalations, budesonide and inhalations Continue IV Solu-Medrol Smoking cessation counseling performed Nicotine patch previously offered Hyponatremia improved Lovenox for DVT prophylaxis The proBNP level is mildly elevated at above 740 Viral screen has been negative Will continue to follow
[2025-03-25 06:25] LABS: Glucose,Whole Blood 191 mg/dL (70-110)
[2025-03-25 09:16] LABS: BUN/Creat Ratio 38.17 Ratio (12.00-20.00); Blood Urea Nitrogen 22.9 mg/dL (9.0-27.0); Glucose 183 mg/dL (70-110)
[2025-03-25 09:17] LABS: Calcium 9.2 mg/dL (8.7-10.3); Carbon Dioxide 41.5 mmol/L (21.6-31.8); Chloride 83 mmol/L (96-109); Sodium 134 mmol/L (135-145)
[2025-03-25 11:22] LABS: Glucose,Whole Blood 118 mg/dL (70-110)
[2025-03-25 16:38] LABS: Glucose,Whole Blood 286 mg/dL (70-110)
--- NOTE | 2025-03-25 19:32 | P.PN ---
Subjective Progress Note Date: 03/25/25 Patient is a 80-year-old female with past medical history significant for hypertension, hyperlipidemia, diabetes, CAD, GERD, anxiety, current tobacco smoker, and COPD. Her PCP is Dr. Franks. Presented emergency department yesterday with a chief complaint of shortness of breath. Noted to be wheezing with limited air movement in the ED. Placed on supplemental oxygen. Given DuoNeb treatment and loaded with IV Solu-Medrol. COPD was felt to be active. Chest x-ray showing enlarged heart, prominent pulmonary vasculature with diffuse mild increased lung markings bilaterally. NT proBNP only 1740. CBC: WBC count 9.1, hemoglobin 14.1, platelets 298. CMP with sodium 126, potassium 3.9, chloride 74, serum bicarb 48, BUN 29, creatinine 0.41, glucose 153. Viral 4 Plex negative for influenza A/B, RSV, COVID. Patient currently being seen on the general medical floor. She is resting comfortably on 2 L/min nasal cannula. States she wears 2 L of supplemental oxygen / while at home. She does have history of COPD and uses a Trelegy maintenance inhaler along with albuterol nebs and albuterol rescue inhaler. She still smokes cigarettes, 1 pack/day. States over the last week or so she has developed increased work of breathing with associated chest tightness and congestion. No significant increase of chronic cough. Occasional yellow sputum production. No reported fevers. Denies any notable sick contacts. Denies any chest pain, heart palpitations, syncopal events, lower extremity edema. Current vital signs: Temperature 97.7 F, heart rate 90 bpm, blood pressure 164/79 mmHg, nontachypneic, SpO2 recorded 94% on 2 L/min nasal cannula. Mom 03/24/2025, the patient is being seen for a follow-up. The patient is still bronchospastic and wheezing she continues to have cough and congestion. Slightly improved compared to yesterday. Nevertheless, her recovery is not complete. No new labs are available from today. She remains on DuoNeb updrafts. She is also on Perforomist and Pulmicort nebulized treatments twice a day and albuterol Medrol 6 mg every 6 hours. She is on BuSpar 10 mg 3 times daily in addition to Xanax on a as needed basis for anxiety. Oxygenation remained stable and the patient remains on 2 L of oxygen by nasal cannula with a pulse ox of 94%. On today's evaluation of 03/25/2025, the patient is feeling less short of breath compared to yesterday. Not fully recovered and the patient continues to have some cough and congestion and she prefers to stay for another 24 hours to be treated with IV Solu-Medrol. Treatment remains unchanged. She remains on [facility]. She is on Perforomist and Pulmicort nebulized treatments and IV Solu-Medrol 60 mg every 6 hours. Serum bicarbonate is 41, sodium is at 135, BUN 22 with a creatinine of 0.6. Objective - Vital Signs Vital signs: Vital Signs Temp 98.4 F 03/25/25 07:32 Pulse 84 03/25/25 11:45 Resp 18 03/25/25 07:32 BP 146/76 03/25/25 07:32 Pulse Ox 96 03/25/25 08:30 FiO2 Intake & Output 03/24/25 03/25/25 03/25/25 18:59 06:59 18:59 Other: # Voids 5 4 # Bowel Movements 1 - Exam GENERAL EXAM: Alert, 72-year-old female, frail, comfortable in no apparent distress. HEAD: Normocephalic and atraumatic EYES: Normal reaction of pupils, equal size. NOSE: Clear with pink turbinates. THROAT: No erythema or exudates. NECK: No masses, no JVD. CHEST: No chest wall deformity. LUNGS: Equal air entry with expiratory wheezing heard bilaterally throughout. On 2 L/min nasal cannula. No conversational dyspnea or accessory muscle use while at rest CVS: S1 and S2 normal with no audible murmur, regular rhythm. No extra heart sounds ABDOMEN: No hepatosplenomegaly, active bowel sounds, no guarding or rigidity. SPINE: No scoliosis or deformity SKIN: No rashes CENTRAL NERVOUS SYSTEM: No focal deficits, tone is normal in all 4 extremities. EXTREMITIES: There is no peripheral edema, clubbing, or cyanosis. Peripheral pulses are intact. - Labs CBC & Chem 7: 03/22/25 13:06 03/25/25 06:09 Labs: Abnormal Lab Results - Last 24 Hours (Table) 03/24/25 03/24/25 03/25/25 Range/Units 16:35 21:18 06:09 Sodium 134 L (135-145) mmol/L Chloride 83 L (96-109) mmol/L Carbon Dioxide 41.5 A* (21.6-31.8) mmol/L BUN/Creatinine Ratio 38.17 H (12.00-20.00) Ratio Glucose 183 H (70-110) mg/dL POC Glucose (mg/dL) 149 H 252 H (70-110) mg/dL 03/25/25 03/25/25 Range/Units 06:24 11:21 Sodium (135-145) mmol/L Chloride (96-109) mmol/L Carbon Dioxide (21.6-31.8) mmol/L BUN/Creatinine Ratio (12.00-20.00) Ratio Glucose (70-110) mg/dL POC Glucose (mg/dL) 191 H 118 H (70-110) mg/dL Assessment and Plan Assessment: Acute COPD exacerbation with secondary shortness of breath Acute hypoxemic respiratory failure, secondary to above, currently on 2 L of oxygen by nasal cannula Chronic hypercarbia with secondary chronic metabolic alkalosis Hyponatremia, hypovolemic, improving Hypertension History of hyperlipidemia Diabetes mellitus type 2 History of coronary artery disease, heart catheterization done May 2024 showing chronic total occlusion of mid RCA with collaterals. Medically managed. Gastroesophageal reflux disease Current ongoing tobacco dependence Plan: Clinically improving Still being treated for acute [employer] exacerbation. Less bronchospastic and wheezy compared to yesterday. Not fully recovered. Clinically however the patient is improving. Will continue same management for now. The patient opted to stay for another 24 hours to continue receiving IV Solu-Medrol. Remains on oxygen 2 L/min nasal cannula No signs of CO2 narcosis Continue combination of DuoNebs, formoterol inhalations, budesonide and inhalations Continue IV Solu-Medrol Smoking cessation counseling performed Nicotine patch previously offered Hyponatremia improved Lovenox for DVT prophylaxis The proBNP level is mildly elevated at above 740 Viral screen has been negative Will continue to follow
[2025-03-25 20:19] LABS: Glucose,Whole Blood 253 mg/dL (70-110)
--- NOTE | 2025-03-26 00:19 | P.PN ---
Subjective This is a pleasant 80 years old female with past medical history of COPD and nicotine dependence Presents because of worsening dyspnea over the last 2 to 3 days. Associated with little cough and phlegm and chest pain with coughing She smokes about 10 to 15 cigarettes/day and she was counseled to quit and she agrees to the nicotine patch. She was using accessory muscles earlier requiring her family member at bedside and her oxygen saturation was dropping to 60s couple times while at home. Usually she uses 2 L of oxygen at home. Patient feels congested and generally weak. No specific GI/ symptoms. No headache dizziness weakness numbness. She reviewed marijuana but denies alcohol. She is afebrile and vital signs stable. Saturating well on 2 L oxygen CBC is unremarkable. Sodium 126. Chloride low at 74. Carbon dioxide is elevated at 48. Rest of CBC BMP LFT INR are unremarkable. Urinalysis with no significant abnormality. COVID influenza and RSV were unremarkable. proBNP 1740. EKG showing sinus rhythm at [address]-T changes. Chest x-ray showing COPD changes I reviewed chest x-ray by myself and agree. Patient currently placed on IV Solu-Medrol and Plavix. 03/23 Patient still feels short of breath and wheezing She does not feel ready for discharge yet. She remains on the same level of oxygen as of yesterday Sodium slightly improved after she received IV fluid yesterday therefore we are going to put her on normal saline 40 mL/h x 24 hours. Continue with IV Solu-Medrol and bronchodilator 03/24 Still feels short of breath 2 L oxygen via nasal cannula She is still wheezing She reports improvement but she does not feel ready to discharge She is walking with exertional dyspnea no chest pain She is not getting IV fluids. Check sodium level in the 03/25 Her breathing and wheezing are improving Patient herself looks better and slightly more energetic in bed. Patient states she walks to the restroom but when she comes back she would be winded Patient confirms improvement but she does not think she is ready for discharge today, patient thinks 1 more day and possible discharge tomorrow Continue with IV Solu-Medrol Sodium improved up to 134 Objective - Vital Signs Vital signs: Vital Signs Temp 98.8 F 03/25/25 13:19 Pulse 89 03/25/25 13:19 Resp 19 03/25/25 13:19 BP 130/65 03/25/25 13:19 Pulse Ox 90 L 03/25/25 13:19 FiO2 Intake & Output 03/24/25 03/25/25 03/25/25 18:59 06:59 18:59 Other: # Voids 5 4 # Bowel Movements 1 - Exam GENERAL: The patient is alert and oriented x3, not in any acute distress. Well developed, well nourished. HEENT: Pupils are round and equally reacting to light. EOMI. No scleral icterus. No conjunctival pallor. Normocephalic, atraumatic. No pharyngeal erythema. No thyromegaly. CARDIOVASCULAR: S1 and S2 present. No murmurs, rubs, or gallops. PULMONARY: Chest is clear to auscultation, n expiratory wheezing , no crackles. ABDOMEN: Soft, nontender, nondistended, normoactive bowel sounds. No palpable organomegaly. MUSCULOSKELETAL: No joint swelling or deformity. EXTREMITIES: No cyanosis, clubbing, or pedal edema. NEUROLOGICAL: Gross neurological examination did not reveal any focal deficits. SKIN: No rashes. no petechiae. - Labs CBC & Chem 7: 03/22/25 13:06 03/25/25 06:09 Labs: Abnormal Lab Results - Last 24 Hours (Table) 03/24/25 03/24/25 03/25/25 Range/Units 16:35 21:18 06:09 Sodium 134 L (135-145) mmol/L Chloride 83 L (96-109) mmol/L Carbon Dioxide 41.5 A* (21.6-31.8) mmol/L BUN/Creatinine Ratio 38.17 H (12.00-20.00) Ratio Glucose 183 H (70-110) mg/dL POC Glucose (mg/dL) 149 H 252 H (70-110) mg/dL 03/25/25 03/25/25 Range/Units 06:24 11:21 Sodium (135-145) mmol/L Chloride (96-109) mmol/L Carbon Dioxide (21.6-31.8) mmol/L BUN/Creatinine Ratio (12.00-20.00) Ratio Glucose (70-110) mg/dL POC Glucose (mg/dL) 191 H 118 H (70-110) mg/dL Assessment and Plan Assessment: Acute COPD exacerbation Acute hypoxic on chronic hypoxic respiratory failure Hyponatremia Severe: Protein malnutrition Substance abuse with marijuana Plan: Continue with IV Solu-Medrol Continue with inhaler bronchodilator Oxygen therapy Pulmonary team consult Counseled to quit smoking and nicotine patch ordered Labs and medication were reviewed.. Continue same treatment. Continue with symptomatic treatment. Resume home medication. Monitor labs and vitals. DVT and GI prophylaxis. Further recommendations as per clinical course of the patient DVT prophylaxis: Subcutaneous h Lovenox GI Prophylaxis: Pepcid Prognosis is guarded
[2025-03-26 06:08] LABS: Glucose,Whole Blood 224 mg/dL (70-110)
[2025-03-26 11:37] LABS: Glucose,Whole Blood 265 mg/dL (70-110)
[2025-03-26 17:01] LABS: Glucose,Whole Blood 116 mg/dL (70-110)
[2025-03-26 20:22] LABS: Glucose,Whole Blood 295 mg/dL (70-110)
--- NOTE | 2025-03-26 23:26 | P.PN ---
Subjective Progress Note Date: 03/26/25 Patient is a 80-year-old female with past medical history significant for hypertension, hyperlipidemia, diabetes, CAD, GERD, anxiety, current tobacco smoker, and COPD. Her PCP is Dr. Franks. Presented emergency department yesterday with a chief complaint of shortness of breath. Noted to be wheezing with limited air movement in the ED. Placed on supplemental oxygen. Given DuoNeb treatment and loaded with IV Solu-Medrol. COPD was felt to be active. Chest x-ray showing enlarged heart, prominent pulmonary vasculature with diffuse mild increased lung markings bilaterally. NT proBNP only 1740. CBC: WBC count 9.1, hemoglobin 14.1, platelets 298. CMP with sodium 126, potassium 3.9, chloride 74, serum bicarb 48, BUN 29, creatinine 0.41, glucose 153. Viral 4 Plex negative for influenza A/B, RSV, COVID. Patient currently being seen on the general medical floor. She is resting comfortably on 2 L/min nasal cannula. States she wears 2 L of supplemental oxygen / while at home. She does have history of COPD and uses a Trelegy maintenance inhaler along with albuterol nebs and albuterol rescue inhaler. She still smokes cigarettes, 1 pack/day. States over the last week or so she has developed increased work of breathing with associated chest tightness and congestion. No significant increase of chronic cough. Occasional yellow sputum production. No reported fevers. Denies any notable sick contacts. Denies any chest pain, heart palpitations, syncopal events, lower extremity edema. Current vital signs: Temperature 97.7 F, heart rate 90 bpm, blood pressure 164/79 mmHg, nontachypneic, SpO2 recorded 94% on 2 L/min nasal cannula. Mom 03/24/2025, the patient is being seen for a follow-up. The patient is still bronchospastic and wheezing she continues to have cough and congestion. Slightly improved compared to yesterday. Nevertheless, her recovery is not complete. No new labs are available from today. She remains on DuoNeb updrafts. She is also on Perforomist and Pulmicort nebulized treatments twice a day and albuterol Medrol 6 mg every 6 hours. She is on BuSpar 10 mg 3 times daily in addition to Xanax on a as needed basis for anxiety. Oxygenation remained stable and the patient remains on 2 L of oxygen by nasal cannula with a pulse ox of 94%. On today's evaluation of 03/25/2025, the patient is feeling less short of breath compared to yesterday. Not fully recovered and the patient continues to have some cough and congestion and she prefers to stay for another 24 hours to be treated with IV Solu-Medrol. Treatment remains unchanged. She remains on DuoN eb updrafts. She is on Perforomist and Pulmicort nebulized treatments and IV Solu-Medrol 60 mg every 6 hours. Serum bicarbonate is 41, sodium is at 135, BUN 22 with a creatinine of 0.6. 03/26/2025, the patient is being seen for a follow-up. Continue to improve and the patient seems to be less bronchospastic and wheezy. According to her, she is still not ready to go home. Based on that, the patient was The hospital for another 24 hours. She remains on 2 L of oxygen by nasal cannula. Treatment remains unchanged. Remains on IV Solu-Medrol 60 mg every 6 hours. Remains on DuoNeb and seems on the clock. Rest of the home medications have been resumed. No altered mentation. No pleurisy. No hemoptysis. Objective - Vital Signs Vital signs: Vital Signs Temp 98.8 F 03/26/25 07:32 Pulse 86 03/26/25 09:08 Resp 17 03/26/25 07:32 BP 124/85 03/26/25 07:32 Pulse Ox 97 03/26/25 08:46 FiO2 Intake & Output 03/25/25 03/26/25 03/26/25 18:59 06:59 18:59 Other: Voiding Method Toilet # Voids 1 2 3 - Exam GENERAL EXAM: Alert, 72-year-old female, frail, comfortable in no apparent distress. HEAD: Normocephalic and atraumatic EYES: Normal reaction of pupils, equal size. NOSE: Clear with pink turbinates. THROAT: No erythema or exudates. NECK: No masses, no JVD. CHEST: No chest wall deformity. LUNGS: Equal air entry with expiratory wheezing heard bilaterally throughout. On 2 L/min nasal cannula. No conversational dyspnea or accessory muscle use while at rest CVS: S1 and S2 normal with no audible murmur, regular rhythm. No extra heart sounds ABDOMEN: No hepatosplenomegaly, active bowel sounds, no guarding or rigidity. SPINE: No scoliosis or deformity SKIN: No rashes CENTRAL NERVOUS SYSTEM: No focal deficits, tone is normal in all 4 extremities. EXTREMITIES: There is no peripheral edema, clubbing, or cyanosis. Peripheral pulses are intact. - Labs CBC & Chem 7: 03/22/25 13:06 03/25/25 06:09 Labs: Abnormal Lab Results - Last 24 Hours (Table) 03/25/25 03/25/25 03/26/25 Range/Units 16:34 20:18 06:07 POC Glucose (mg/dL) 286 H 253 H 224 H (70-110) mg/dL 03/26/25 Range/Units 11:34 POC Glucose (mg/dL) 265 H (70-110) mg/dL Assessment and Plan Assessment: Acute COPD exacerbation with secondary shortness of breath Acute hypoxemic respiratory failure, secondary to above, currently on 2 L of oxygen by nasal cannula Chronic hypercarbia with secondary chronic metabolic alkalosis Hyponatremia, hypovolemic, improving Hypertension History of hyperlipidemia Diabetes mellitus type 2 History of coronary artery disease, heart catheterization done May 2024 showing chronic total occlusion of mid RCA with collaterals. Medically managed. Gastroesophageal reflux disease Current ongoing tobacco dependence Plan: Clinically improving, possible discharge in the next 24 hours. Remains on IV Solu-Medrol. Will continue same treatment for now. Still being treated for acute [employer] exacerbation. Less bronchospastic and wheezy compared to yesterday. Not fully recovered. Clinically however the patient is improving. Will continue same management for now. The patient opted to stay for another 24 hours to continue receiving IV Solu-Medrol. Remains on oxygen 2 L/min nasal cannula No signs of CO2 narcosis Continue combination of DuoNebs, formoterol inhalations, budesonide and inhalations Continue IV Solu-Medrol Smoking cessation counseling performed Nicotine patch previously offered Hyponatremia improved Lovenox for DVT prophylaxis The proBNP level is mildly elevated at above 740 Viral screen has been negative No new complaints otherwise.
--- NOTE | 2025-03-27 00:15 | P.PN ---
Subjective This is a pleasant 80 years old female with past medical history of COPD and nicotine dependence Presents because of worsening dyspnea over the last 2 to 3 days. Associated with little cough and phlegm and chest pain with coughing She smokes about 10 to 15 cigarettes/day and she was counseled to quit and she agrees to the nicotine patch. She was using accessory muscles earlier requiring her family member at bedside and her oxygen saturation was dropping to 60s couple times while at home. Usually she uses 2 L of oxygen at home. Patient feels congested and generally weak. No specific GI/ symptoms. No headache dizziness weakness numbness. She reviewed marijuana but denies alcohol. She is afebrile and vital signs stable. Saturating well on 2 L oxygen CBC is unremarkable. Sodium 126. Chloride low at 74. Carbon dioxide is elevated at 48. Rest of CBC BMP LFT INR are unremarkable. Urinalysis with no significant abnormality. COVID influenza and RSV were unremarkable. proBNP 1740. EKG showing sinus rhythm at [address]-T changes. Chest x-ray showing COPD changes I reviewed chest x-ray by myself and agree. Patient currently placed on IV Solu-Medrol and Plavix. 03/23 Patient still feels short of breath and wheezing She does not feel ready for discharge yet. She remains on the same level of oxygen as of yesterday Sodium slightly improved after she received IV fluid yesterday therefore we are going to put her on normal saline 40 mL/h x 24 hours. Continue with IV Solu-Medrol and bronchodilator 03/24 Still feels short of breath 2 L oxygen via nasal cannula She is still wheezing She reports improvement but she does not feel ready to discharge She is walking with exertional dyspnea no chest pain She is not getting IV fluids. Check sodium level in the 03/25 Her breathing and wheezing are improving Patient herself looks better and slightly more energetic in bed. Patient states she walks to the restroom but when she comes back she would be winded Patient confirms improvement but she does not think she is ready for discharge today, patient thinks 1 more day and possible discharge tomorrow Continue with IV Solu-Medrol Sodium improved up to 134 03/26 Patient wheezing and shortness of breath improving She looks more up in bed Denies any other new complaints Can be considered for discharge early which Objective - Vital Signs Vital signs: Vital Signs Temp 98.8 F 03/26/25 07:32 Pulse 86 03/26/25 09:08 Resp 17 03/26/25 07:32 BP 124/85 03/26/25 07:32 Pulse Ox 97 03/26/25 08:46 FiO2 Intake & Output 03/25/25 03/26/25 03/26/25 18:59 06:59 18:59 Other: Voiding Method Toilet # Voids 1 2 3 - Exam GENERAL: The patient is alert and oriented x3, not in any acute distress. Well developed, well nourished. HEENT: Pupils are round and equally reacting to light. EOMI. No scleral icterus. No conjunctival pallor. Normocephalic, atraumatic. No pharyngeal erythema. No thyromegaly. CARDIOVASCULAR: S1 and S2 present. No murmurs, rubs, or gallops. PULMONARY: Chest is clear to auscultation, n expiratory wheezing , no crackles. ABDOMEN: Soft, nontender, nondistended, normoactive bowel sounds. No palpable organomegaly. MUSCULOSKELETAL: No joint swelling or deformity. EXTREMITIES: No cyanosis, clubbing, or pedal edema. NEUROLOGICAL: Gross neurological examination did not reveal any focal deficits. SKIN: No rashes. no petechiae. - Labs CBC & Chem 7: 03/22/25 13:06 03/25/25 06:09 Labs: Abnormal Lab Results - Last 24 Hours (Table) 03/25/25 03/25/25 03/25/25 Range/Units 11:21 16:34 20:18 POC Glucose (mg/dL) 118 H 286 H 253 H (70-110) mg/dL 03/26/25 Range/Units 06:07 POC Glucose (mg/dL) 224 H (70-110) mg/dL Assessment and Plan Assessment: Acute COPD exacerbation Acute hypoxic on chronic hypoxic respiratory failure Hyponatremia Severe: Protein malnutrition Substance abuse with marijuana Plan: Continue with IV Solu-Medrol Continue with inhaler bronchodilator Oxygen therapy Pulmonary team consult Counseled to quit smoking and nicotine patch ordered Labs and medication were reviewed.. Continue same treatment. Continue with symptomatic treatment. Resume home medication. Monitor labs and vitals. DVT and GI prophylaxis. Further recommendations as per clinical course of the patient DVT prophylaxis: Subcutaneous h Lovenox GI Prophylaxis: Pepcid Prognosis is guarded
[2025-03-27 06:29] LABS: Glucose,Whole Blood 229 mg/dL (70-110)
[2025-03-27 11:40] LABS: Glucose,Whole Blood 225 mg/dL (70-110)
[2025-03-27 16:43] LABS: Glucose,Whole Blood 344 mg/dL (70-110)
[2025-03-27 20:21] LABS: Glucose,Whole Blood 388 mg/dL (70-110)
--- NOTE | 2025-03-27 21:40 | P.PN ---
Subjective Progress Note Date: 03/27/25 Patient is a 80-year-old female with past medical history significant for hypertension, hyperlipidemia, diabetes, CAD, GERD, anxiety, current tobacco smoker, and COPD. Her PCP is Dr. rFanks. Presented emergency department yesterday with a chief complaint of shortness of breath. Noted to be wheezing with limited air movement in the ED. Placed on supplemental oxygen. Given DuoNeb treatment and loaded with IV Solu-Medrol. COPD was felt to be active. Chest x-ray showing enlarged heart, prominent pulmonary vasculature with diffuse mild increased lung markings bilaterally. NT proBNP only 1740. CBC: WBC count 9.1, hemoglobin 14.1, platelets 298. CMP with sodium 126, potassium 3.9, chloride 74, serum bicarb 48, BUN 29, creatinine 0.41, glucose 153. Viral 4 Plex negative for influenza A/B, RSV, COVID. Patient currently being seen on the general medical floor. She is resting comfortably on 2 L/min nasal cannula. States she wears 2 L of supplemental oxygen / while at home. She does have history of COPD and uses a Trelegy maintenance inhaler along with albuterol nebs and albuterol rescue inhaler. She still smokes cigarettes, 1 pack/day. States over the last week or so she has developed increased work of breathing with associated chest tightness and congestion. No significant increase of chronic cough. Occasional yellow sputum production. No reported fevers. Denies any notable sick contacts. Denies any chest pain, heart palpitations, syncopal events, lower extremity edema. Current vital signs: Temperature 97.7 F, heart rate 90 bpm, blood pressure 164/79 mmHg, nontachypneic, SpO2 recorded 94% on 2 L/min nasal cannula. Mom 03/24/2025, the patient is being seen for a follow-up. The patient is still bronchospastic and wheezing she continues to have cough and congestion. Slightly improved compared to yesterday. Nevertheless, her recovery is not complete. No new labs are available from today. She remains on DuoNeb updrafts. She is also on Perforomist and Pulmicort nebulized treatments twice a day and albuterol Medrol 6 mg every 6 hours. She is on BuSpar 10 mg 3 times daily in addition to Xanax on a as needed basis for anxiety. Oxygenation remained stable and the patient remains on 2 L of oxygen by nasal cannula with a pulse ox of 94%. On today's evaluation of 03/25/2025, the patient is feeling less short of breath compared to yesterday. Not fully recovered and the patient continues to have some cough and congestion and she prefers to stay for another 24 hours to be treated with IV Solu-Medrol. Treatment remains unchanged. She remains on DuoN eb updrafts. She is on Perforomist and Pulmicort nebulized treatments and IV Solu-Medrol 60 mg every 6 hours. Serum bicarbonate is 41, sodium is at 135, BUN 22 with a creatinine of 0.6. 03/26/2025, the patient is being seen for a follow-up. Continue to improve and the patient seems to be less bronchospastic and wheezy. According to her, she is still not ready to go home. Based on that, the patient was The hospital for another 24 hours. She remains on 2 L of oxygen by nasal cannula. Treatment remains unchanged. Remains on IV Solu-Medrol 60 mg every 6 hours. Remains on DuoNeb and seems on the clock. Rest of the home medications have been resumed. No altered mentation. No pleurisy. No hemoptysis. 03/27/2025, the patient is feeling better. No significant shortness of breath. Bronchospasm wheezing has subsided and the patient will likely go home today. She remains on bronchodilators. She remains on steroids. She remains on oxygen and she is on 2 L of oxygen by nasal cannula with a pulse ox of 94%. She remains on DuoNeb treatments [id number] and she will be transition to prednisone burst taper. Rest of the medications remain unchanged. No new labs are available from today. Objective - Vital Signs Vital signs: Vital Signs Temp 98.3 F 03/27/25 08:09 Pulse 80 03/27/25 11:41 Resp 17 03/27/25 08:09 BP 145/65 03/27/25 08:09 Pulse Ox 97 03/27/25 08:34 FiO2 Intake & Output 03/26/25 03/27/25 03/27/25 18:59 06:59 18:59 Other: Voiding Method Toilet Toilet Toilet # Voids 3 2 - Exam GENERAL EXAM: Alert, 72-year-old female, frail, comfortable in no apparent distress. HEAD: Normocephalic and atraumatic EYES: Normal reaction of pupils, equal size. NOSE: Clear with pink turbinates. THROAT: No erythema or exudates. NECK: No masses, no JVD. CHEST: No chest wall deformity. LUNGS: Equal air entry with expiratory wheezing heard bilaterally throughout. On 2 L/min nasal cannula. No conversational dyspnea or accessory muscle use while at rest CVS: S1 and S2 normal with no audible murmur, regular rhythm. No extra heart sounds ABDOMEN: No hepatosplenomegaly, active bowel sounds, no guarding or rigidity. SPINE: No scoliosis or deformity SKIN: No rashes CENTRAL NERVOUS SYSTEM: No focal deficits, tone is normal in all 4 extremities. EXTREMITIES: There is no peripheral edema, clubbing, or cyanosis. Peripheral pulses are intact. - Labs CBC & Chem 7: 03/22/25 13:06 03/25/25 06:09 Labs: Abnormal Lab Results - Last 24 Hours (Table) 03/26/25 03/26/25 03/27/25 Range/Units 16:56 20:20 06:28 POC Glucose (mg/dL) 116 H 295 H 229 H (70-110) mg/dL 03/27/25 Range/Units 11:38 POC Glucose (mg/dL) 225 H (70-110) mg/dL Assessment and Plan Assessment: Acute COPD exacerbation with secondary shortness of breath, improved Acute hypoxemic respiratory failure, secondary to above, currently on 2 L of oxygen by nasal cannula Chronic hypercarbia with secondary chronic metabolic alkalosis Hyponatremia, hypovolemic, improving Hypertension History of hyperlipidemia Diabetes mellitus type 2 History of coronary artery disease, heart catheterization done May 2024 showing chronic total occlusion of mid RCA with collaterals. Medically managed. Gastroesophageal reflux disease Current ongoing tobacco dependence Plan: Clinically improving, Very close to baseline respiratory status Discontinue IV Solu-Medrol and start the patient on prednisone burst taper Remains on oxygen 2 L/min nasal cannula No signs of CO2 narcosis Continue combination of DuoNebs, formoterol inhalations, budesonide and inhalations Smoking cessation counseling performed Nicotine patch previously offered Hyponatremia improved Lovenox for DVT prophylaxis The proBNP level is mildly elevated at above 740 Viral screen has been negative No new complaints otherwise Likely home today or within the next 24 hours.
[2025-03-28 06:11] LABS: Glucose,Whole Blood 101 mg/dL (70-110)
--- NOTE | 2025-03-28 07:55 | P.PN ---
Subjective This is a pleasant 80 years old female with past medical history of COPD and nicotine dependence Presents because of worsening dyspnea over the last 2 to 3 days. Associated with little cough and phlegm and chest pain with coughing She smokes about 10 to 15 cigarettes/day and she was counseled to quit and she agrees to the nicotine patch. She was using accessory muscles earlier requiring her family member at bedside and her oxygen saturation was dropping to 60s couple times while at home. Usually she uses 2 L of oxygen at home. Patient feels congested and generally weak. No specific GI/ symptoms. No headache dizziness weakness numbness. She reviewed marijuana but denies alcohol. She is afebrile and vital signs stable. Saturating well on 2 L oxygen CBC is unremarkable. Sodium 126. Chloride low at 74. Carbon dioxide is elevated at 48. Rest of CBC BMP LFT INR are unremarkable. Urinalysis with no significant abnormality. COVID influenza and RSV were unremarkable. proBNP 1740. EKG showing sinus rhythm at [address]-T changes. Chest x-ray showing COPD changes I reviewed chest x-ray by myself and agree. Patient currently placed on IV Solu-Medrol and Plavix. 03/23 Patient still feels short of breath and wheezing She does not feel ready for discharge yet. She remains on the same level of oxygen as of yesterday Sodium slightly improved after she received IV fluid yesterday therefore we are going to put her on normal saline 40 mL/h x 24 hours. Continue with IV Solu-Medrol and bronchodilator 03/24 Still feels short of breath 2 L oxygen via nasal cannula She is still wheezing She reports improvement but she does not feel ready to discharge She is walking with exertional dyspnea no chest pain She is not getting IV fluids. Check sodium level in the 03/25 Her breathing and wheezing are improving Patient herself looks better and slightly more energetic in bed. Patient states she walks to the restroom but when she comes back she would be winded Patient confirms improvement but she does not think she is ready for discharge today, patient thinks 1 more day and possible discharge tomorrow Continue with IV Solu-Medrol Sodium improved up to 134 03/26 Patient wheezing and shortness of breath improving She looks more up in bed Denies any other new complaints Can be considered for discharge early which 03/27 Shortness of breath improving Wheezing improving Still with exertional dyspnea Continued on steroids intravenously Possible discharge in 24 to 48 hours Objective - Vital Signs Vital signs: Vital Signs Temp 98.3 F 03/27/25 08:09 Pulse 80 03/27/25 08:55 Resp 17 03/27/25 08:09 BP 145/65 03/27/25 08:09 Pulse Ox 97 03/27/25 08:34 FiO2 Intake & Output 03/26/25 03/27/25 03/27/25 18:59 06:59 18:59 Other: Voiding Method Toilet Toilet # Voids 3 2 - Exam GENERAL: The patient is alert and oriented x3, not in any acute distress. Well developed, well nourished. HEENT: Pupils are round and equally reacting to light. EOMI. No scleral icterus. No conjunctival pallor. Normocephalic, atraumatic. No pharyngeal erythema. No thyromegaly. CARDIOVASCULAR: S1 and S2 present. No murmurs, rubs, or gallops. PULMONARY: Chest is clear to auscultation, n expiratory wheezing , no crackles. ABDOMEN: Soft, nontender, nondistended, normoactive bowel sounds. No palpable organomegaly. MUSCULOSKELETAL: No joint swelling or deformity. EXTREMITIES: No cyanosis, clubbing, or pedal edema. NEUROLOGICAL: Gross neurological examination did not reveal any focal deficits. SKIN: No rashes. no petechiae. - Labs CBC & Chem 7: 03/22/25 13:06 03/25/25 06:09 Labs: Abnormal Lab Results - Last 24 Hours (Table) 03/26/25 03/26/25 03/26/25 Range/Units 11:34 16:56 20:20 POC Glucose (mg/dL) 265 H 116 H 295 H (70-110) mg/dL 03/27/25 Range/Units 06:28 POC Glucose (mg/dL) 229 H (70-110) mg/dL Assessment and Plan Assessment: Acute COPD exacerbation Acute hypoxic on chronic hypoxic respiratory failure Hyponatremia Severe: Protein malnutrition Substance abuse with marijuana Plan: Continue with IV Solu-Medrol Continue with inhaler bronchodilator Oxygen therapy Pulmonary team consult Counseled to quit smoking and nicotine patch ordered Labs and medication were reviewed.. Continue same treatment. Continue with symptomatic treatment. Resume home medication. Monitor labs and vitals. DVT and GI prophylaxis. Further recommendations as per clinical course of the patient DVT prophylaxis: Subcutaneous h Lovenox GI Prophylaxis: Pepcid Prognosis is guarded
[2025-03-28] MEDS: predniSONE 20 MG TAB PO SCH (09:30)
[2025-03-28 12:00] LABS: Glucose,Whole Blood 154 mg/dL (70-110)
[2025-03-28] MEDS: NON FORMULARY DRUG (Alendronate Sodium [Fosamax] 70 MG Tablet) PO SCH (12:12)
[2025-03-28 15:34] VITALS: BP 136/78; PULSE 93; RESP 18; TEMP 97.9
--- NOTE | 2025-03-31 00:14 | P.DS ---
Providers Date of admission: 03/22/25 15:00 Expected date of discharge: 03/28/25 Attending physician: Jesu Miles MD Consults: 03/22/25 22:12 Consult Physician Routine Consulting Provider: Katelyn Coreas Consult Reason/Comments: copd Do you want consulting provider notified?: Yes, Notify in am Primary care physician: Dalton Franks MD Hospital Course: Final diagnosis Acute COPD exacerbation Acute hypoxic on chronic hypoxic respiratory failure Hyponatremia, improving Severe Protein calorie malnutrition with a BMI of 15.4 Substance abuse with marijuana GI prophylaxis DVT prophylaxis Full code Discharge disposition Patient is being discharged in a stable condition with guarded prognosis to home. Patient will follow-up with Dr. Franks in the outpatient setting upon discharge. Patient is to continue with current medications and outpatient follow-up with pulmonary as scheduled. Total time taken is greater than 35 minutes. Hospital course This is a 80-year-old female who was recently admitted with acute on chronic hypoxic respiratory failure with increasing shortness of breath with acute COPD exacerbation being closely monitored. Patient with prolonged hospitalization showing improvement slowly and has been reevaluated by pulmonary recommending close outpatient follow-up. Patient is extremely anxious and wants to go home. Patient has been cleared by pulmonary for discharge today. Please refer to consultation notes for further HPI. Currently no reports of chest pain, no worsening shortness of breath, or palpitations. Patient is afebrile. No reports of nausea or vomiting and patient is tolerating diet. Patient will be discharged home today. Guarded prognosis Physical exam: Gen: This is a 80-year-old female who is awake, alert and oriented x 3, thin built, cachectic, elderly appearing, chronically ill-appearing HEENT: Head is atraumatic, normocephalic. Pupils equal, round. Sclerae is anicteric. NECK: Supple. No JVD. No lymphadenopathy. No thyromegaly. LUNGS: Diminished breath sounds bilaterally with some scattered expiratory wheezes and coarse rhonchi. No intercostal retractions. HEART: S1, S2 are muffled ABDOMEN: Soft. Thin bowel sounds are present. No masses. No tenderness. EXTREMITIES: No pedal edema. No calf tenderness. NEUROLOGICAL: Patient is awake, alert and oriented x3. Cranial nerves 2 through 12 are grossly intact. Please refer to medication reconciliation sheet for a list of medications. The impression and plan of care has been dictated by Susana Bess, Nurse Practitioner as directed. Dr. Arvind MD I have performed a history and examination and MDM of this patient, discussed the same with the dictator, and agree with the dictator's assessment and plan as written ,documented as a scribe. Based on total visit time, I have performed more than 50% of the visit. Patient Condition at Discharge: Fair Plan - Discharge Summary Discharge Rx Participant: No New Discharge Prescriptions: New Ipratropium-Albuterol Nebulize [Duoneb 0.5 mg-3 mg/3 ml Soln] 3 ml INHALATION RT-Q2H PRN each PRN Reason: Shortness Of Breath Or Wheezing Multivitamins, Thera [Multivitamin (formulary)] 1 each PO DAILY #30 tab Acetaminophen Tab [Tylenol] 325 mg PO Q6HR PRN tab PRN Reason: Fever And/ Or Pain Albuterol Inhaler [Ventolin Hfa Inhaler] 2 puff INHALATION Q6H PRN #1 each PRN Reason: Wheezing predniSONE See Taper PO DIRECTED #30 tab Ipratropium-Albuterol Nebulize [Duoneb 0.5 mg-3 mg/3 ml Soln] 3 ml INHALATION RT-QID #100 each Nicotine 21Mg/24Hr Patch [Habitrol] 1 patch TRANSDERM DAILY #30 patch Budesonide-Formot 160-4.5 Mcg [Symbicort 160-4.5 Mcg Inhaler] 2 puff INHALATION BID 30 Days #10.2 gm Continue Clopidogrel [Plavix] 75 mg PO DAILY Alendronate Sodium [Fosamax] 70 mg PO MO amLODIPine [Norvasc] 5 mg PO DAILY Pantoprazole [Protonix] 40 mg PO BID Losartan-Hctz 50-12.5 mg [Hyzaar 50-12.5] 1 tab PO DAILY Pioglitazone [Actos] 15 mg PO DAILY busPIRone HCl [Buspar] 10 mg PO TID ALPRAZolam [Xanax] 1 mg PO HS ALPRAZolam [Xanax] 0.5 mg PO DAILY PRN PRN Reason: Anxiety Prochlorperazine [Compazine] 5 mg PO TID PRN PRN Reason: Nausea Lipase/Protease/Amylase [Lillie Lemos 3,000 Unit Capsule] 1 cap PO TID Discharge Medication List Clopidogrel [Plavix] 75 mg PO DAILY 03/26/22 [History] Alendronate Sodium [Fosamax] 70 mg PO MO 04/30/24 [History] ALPRAZolam [Xanax] 0.5 mg PO DAILY PRN 03/22/25 [History] ALPRAZolam [Xanax] 1 mg PO HS 03/22/25 [History] Lipase/Protease/Amylase [Lillie Dr 3,000 Unit Capsule] 1 cap PO TID 03/22/25 [History] Losartan-Hctz 50-12.5 mg [Hyzaar 50-12.5] 1 tab PO DAILY 03/22/25 [History] Pantoprazole [Protonix] 40 mg PO BID 03/22/25 [History] Pioglitazone [Actos] 15 mg PO DAILY 03/22/25 [History] Prochlorperazine [Compazine] 5 mg PO TID PRN 03/22/25 [History] amLODIPine [Norvasc] 5 mg PO DAILY 03/22/25 [History] busPIRone HCl [Buspar] 10 mg PO TID 03/22/25 [History] Acetaminophen Tab [Tylenol] 325 mg PO Q6HR PRN tab 03/28/25 [Rx] Albuterol Inhaler [Ventolin Hfa Inhaler] 2 puff INHALATION Q6H PRN #1 each 03/28/25 [Rx] Budesonide-Formot 160-4.5 Mcg [Symbicort 160-4.5 Mcg Inhaler] 2 puff INHALATION BID 30 Days #10.2 gm 03/28/25 [Rx] Ipratropium-Albuterol Nebulize [Duoneb 0.5 mg-3 mg/3 ml Soln] 3 ml INHALATION RT-Q2H PRN each 03/28/25 [Rx] Ipratropium-Albuterol Nebulize [Duoneb 0.5 mg-3 mg/3 ml Soln] 3 ml INHALATION RT-QID #100 each 03/28/25 [Rx] Multivitamins, Thera [Multivitamin (formulary)] 1 each PO DAILY #30 tab 03/28/25 [Rx] Nicotine 21Mg/24Hr Patch [Habitrol] 1 patch TRANSDERM DAILY #30 patch 03/28/25 [Rx] predniSONE See Taper PO DIRECTED #30 tab 03/28/25 [Rx] Follow up Appointment(s)/Referral(s): Robbie Harmon MD [STAFF PHYSICIAN] - 04/27/25 10:00 am [facility], [NON-STAFF] - As Needed ([facility] will call you to schedule your in home nursing visits. ) Dalton Franks MD [Primary Care Provider] - 03/30/25 12:45 pm (in [place] Office) Activity/Diet/Wound Care/Special Instructions: Activity limited until follow-up Follow-up with primary care provider on discharge Follow-up with pulmonary outpatient Continue taking medications as prescribed Strongly recommend smoking cessation Discharge Disposition: HOME SELF-CARE
== END 2025-03-28 16:43 | disposition home or self-care (01) | DRG 190 ==
LOC: EC 11:48 → OBSVTOIN 15:00 → 4SSUR 15:00
PROVIDERS: ADMIT Internal Medicine; ATTEND Internal Medicine
DX: J44.1 Chronic obstructive pulmonary disease with (acute) exacerbation (principal); E43 Unspecified severe protein-calorie malnutrition; J96.21 Acute and chronic respiratory failure with hypoxia; E87.3 Alkalosis; Z99.81 Dependence on supplemental oxygen; E86.1 Hypovolemia; E11.9 Type 2 diabetes mellitus without complications; M06.9 Rheumatoid arthritis, unspecified; F32.A Depression, unspecified; F12.10 Cannabis abuse, uncomplicated; Z68.1 Body mass index [BMI] 19.9 or less, adult; E87.1 Hypo-osmolality and hyponatremia; E78.5 Hyperlipidemia, unspecified; I25.10 Atherosclerotic heart disease of native coronary artery without angina pectoris; F41.9 Anxiety disorder, unspecified; F17.210 Nicotine dependence, cigarettes, uncomplicated; I25.82 Chronic total occlusion of coronary artery; K21.9 Gastro-esophageal reflux disease without esophagitis; Z79.899 Other long term (current) drug therapy; Z79.84 Long term (current) use of oral hypoglycemic drugs; Z79.83 Long term (current) use of bisphosphonates; Z79.02 Long term (current) use of antithrombotics/antiplatelets; Z71.6 Tobacco abuse counseling
CPT/HCPCS: 36415; 71046; 80048; 80053; 81001; 83036; 83605; 83735; 83880; 83930; 83935; 84300; 85025; 85610; 85730; 87636; 93005; 94640; 94760; 96361; 96374; 96376; 99285